=== PATIENT | male | born 1995 | race Caucasian/White ===

== ENCOUNTER 2023-10-01 15:58 | Emergency (ER) | payer MEDICAID ==
[~2023-10-01] VITALS: Ht 177.8 cm; Wt 71.0 kg
[2023-10-01 16:43] LABS: BASOPHILS # (AUTO) 0.1 X10'3 (0-0.2); BASOPHILS % (AUTO) 0.9 % (0-1); EOSINOPHILS # (AUTO) 0.3 X10'3 (0-0.9); EOSINOPHILS % (AUTO) 3.2 % (0-6); HEMATOCRIT 38.7 % (42.0-52.0); HEMOGLOBIN 12.9 g/dl (14.0-17.9); LYMPHOCYTES # (AUTO) 2.8 X10'3 (1.1-4.8); LYMPHOCYTES % (AUTO) 33.9 % (21-51); MEAN CORPUSCULAR HEMOGLOBIN 29.7 PG (27.0-31.0); MEAN CORPUSCULAR HGB CONC 33.2 g/dL (33.0-36.5); MEAN CORPUSCULAR VOLUME 89.2 FL (78-98); MEAN PLATELET VOLUME 7.4 FL (7.4-10.4); MONOCYTES # (AUTO) 0.6 X10'3 (0-0.9); MONOCYTES % (AUTO) 7.9 % (2-12); NEUTROPHILS # (AUTO) 4.4 X10'3 (1.8-7.7); NEUTROPHILS % (AUTO) 54.1 % (42-75); PLATELET COUNT 255 X10'3 (140-440); RED BLOOD COUNT 4.34 X10'6 (4.70-6.10); RED CELL DISTRIBUTION WIDTH 13.8 % (11.5-14.5); WHITE BLOOD COUNT 8.1 X10'3 (4.5-11.0)
[2023-10-01 16:57] LABS: ALBUMIN 3.2 G/DL (3.4-5.0); ANION GAP 6 (8-16); BLOOD UREA NITROGEN 28 MG/DL (7-18); BUN/CREATININE RATIO 24.1 (10.0-20.0); CALCIUM 7.9 MG/DL (8.5-10.1); CHLORIDE 103 MMOL/L (99-107); CREATININE 1.16 MG/DL (0.60-1.10); ETHANOL < 10 MG/DL (<10); GLUCOSE 193 MG/DL (70-104); POTASSIUM 3.1 MMOL/L (3.5-5.1); SALICYLATE 1.1 MG/DL (4.0-20.0); SODIUM 136 MMOL/L (135-145); TOTAL CARBON DIOXIDE 26.6 MMOL/L (24-32); eCRCL 96 ML/MIN; eGFR 76 ML/MIN
[2023-10-01 17:02] LABS: ACETAMINOPHEN < 2.0 UG/ML (10-30)
[2023-10-01 20:56] LABS: BILIRUBIN,URINE NEGATIVE (Neg); CLARITY,URINE CLEAR (Clear); COLOR,URINE YELLOW (Yellow); GLUCOSE, URINE NEGATIVE (Neg); KETONES,URINE TRACE mg/dl (Neg); LEUKOCYTE ESTERASE ,URINE NEGATIVE (Neg); NITRITES, URINE NEGATIVE (Neg); OCCULT BLOOD,URINE NEGATIVE (Neg); PROTEIN,URINE NEGATIVE (Neg); UROBILINOGEN,URINE 0.2 E.U/dL (0.2-1.0)
[2023-10-01 20:58] LABS: UA COLLECTION TYPE VOIDED
[2023-10-01 21:16] LABS: URINE AMPHETAMINE SCREEN POSITIVE (Neg); URINE BARBITUATE SCREEN NEGATIVE (Neg); URINE BENZODIAZEPINES SCREEN NEGATIVE (Neg); URINE CANNABINOID SCREEN POSITIVE (Neg); URINE COCAINE SCREEN NEGATIVE (Neg); URINE METHADONE SCREEN NEGATIVE (Neg); URINE OPIATE SCREEN NEGATIVE (Neg); URINE PHENCYCLIDINE SCREEN NEGATIVE (Neg)
[2023-10-01] MEDS ORDERED: NO HOME MEDS (22:44)
[2023-10-01] MEDS: potassium Cl 20 mEq SR tablet PO STA (23:13)
[2023-10-02 06:06] VITALS: BP 108/53; PULSE 68; RESP 18; O2SAT 92
[2023-10-02 11:24] VITALS: TEMP 98.1
== END 2023-10-02 11:27 | disposition home or self-care (01) ==
LOC: EDBD 15:59 → ER 15:59
DX: T43.651A Poisoning by methamphetamines accidental (unintentional), initial encounter (principal); Z20.822 Contact with and (suspected) exposure to COVID-19; Y92.89 Other specified places as the place of occurrence of the external cause
CPT/HCPCS: 36415; 80048; 80305; 80320; 80329; 81003; 85025; 87811; 99285; A4615

== ENCOUNTER 2023-10-23 21:08 | Emergency (ER) | payer MEDICAID ==
[~2023-10-23] VITALS: Ht 170.2 cm; Wt 72.7 kg
[~2023-10-23 21:08] MED LIST: NO HOME MEDS
[2023-10-23 21:21] VITALS: TEMP 98.9
[2023-10-23 22:30] LABS: BASOPHILS # (AUTO) 0.1 X10'3 (0-0.2); BASOPHILS % (AUTO) 0.8 % (0-1); EOSINOPHILS # (AUTO) 0.1 X10'3 (0-0.9); EOSINOPHILS % (AUTO) 0.7 % (0-6); HEMATOCRIT 34.9 % (42.0-52.0); HEMOGLOBIN 11.5 g/dl (14.0-17.9); LYMPHOCYTES # (AUTO) 2.3 X10'3 (1.1-4.8); LYMPHOCYTES % (AUTO) 17.9 % (21-51); MEAN CORPUSCULAR HEMOGLOBIN 28.4 PG (27.0-31.0); MEAN CORPUSCULAR HGB CONC 32.9 g/dL (33.0-36.5); MEAN CORPUSCULAR VOLUME 86.5 FL (78-98); MONOCYTES # (AUTO) 1.4 X10'3 (0-0.9); MONOCYTES % (AUTO) 11.3 % (2-12); NEUTROPHILS # (AUTO) 8.9 X10'3 (1.8-7.7); NEUTROPHILS % (AUTO) 69.3 % (42-75); PLATELET COUNT 350 X10'3 (140-440); RED BLOOD COUNT 4.03 X10'6 (4.70-6.10); RED CELL DISTRIBUTION WIDTH 14.3 % (11.5-14.5); WHITE BLOOD COUNT 12.8 X10'3 (4.5-11.0)
[2023-10-23 22:40] LABS: ALANINE AMINOTRANSFERASE 24 U/L (12-78); ALBUMIN 2.2 G/DL (3.4-5.0); ALBUMIN/GLOBULIN RATIO 0.5 (1.1-1.5); ALKALINE PHOSPHATASE 59 IU/L (46-116); ANION GAP 10 (8-16); ASPARTATE AMINO TRANSFERASE 21 U/L (10-37); BILIRUBIN,TOTAL 0.2 MG/DL (0.1-1.0); BLOOD UREA NITROGEN 18 MG/DL (7-18); BUN/CREATININE RATIO 20.7 (10.0-20.0); CALCIUM 8.4 MG/DL (8.5-10.1); CHLORIDE 105 MMOL/L (99-107); CREATININE 0.87 MG/DL (0.60-1.10); GLUCOSE 102 MG/DL (70-104); POTASSIUM 4.3 MMOL/L (3.5-5.1); SODIUM 142 MMOL/L (135-145); TOTAL CARBON DIOXIDE 27.5 MMOL/L (24-32); TOTAL PROTEIN 6.8 G/DL (6.4-8.2); eCRCL 119 ML/MIN; eGFR > 90 ML/MIN
[2023-10-23 22:43] LABS: SALICYLATE 0.9 MG/DL (4.0-20.0)
[2023-10-23 22:45] LABS: ACETAMINOPHEN < 2.0 UG/ML (10-30)
[2023-10-23 22:48] LABS: PRO BRAIN NATRIURETIC PEPTIDE 103 PG/ML (0-125)
[2023-10-23 22:50] LABS: ETHANOL < 10 MG/DL (<10)
[2023-10-23] MEDS: OLANZapine 2.5MG tablet PO STA (23:05)
[2023-10-23 23:07] LABS: D-DIMER 0.93 MG/L FEU (0-0.50); INR 1.1 INR; PROTHROMBIN TIME 11.4 SECONDS (9.0-12.0)
[2023-10-23] MEDS: olanzapine 10mg tablet PO STA (23:08)
[2023-10-23] MEDS ORDERED: iohexol 350MG/ML 100ml bottle IV ONE (23:47)
[2023-10-24 00:17] LABS: URINE AMPHETAMINE SCREEN POSITIVE (Neg); URINE BARBITUATE SCREEN NEGATIVE (Neg); URINE BENZODIAZEPINES SCREEN NEGATIVE (Neg); URINE CANNABINOID SCREEN POSITIVE (Neg); URINE COCAINE SCREEN NEGATIVE (Neg); URINE METHADONE SCREEN NEGATIVE (Neg); URINE OPIATE SCREEN NEGATIVE (Neg); URINE PHENCYCLIDINE SCREEN NEGATIVE (Neg)
[2023-10-24] MEDS: levoFLOXACIN 750MG TABLET PO ONE (01:27)
[2023-10-24 06:09] VITALS: O2SAT 97
[2023-10-24 07:28] VITALS: BP 106/65; PULSE 85
[2023-10-24] MEDS ORDERED: LEVO-65 PO (10:33)
[2023-10-24 10:53] VITALS: RESP 16
== END 2023-10-24 10:56 | disposition home or self-care (01) ==
LOC: ER 21:09 → MERGE 21:09 → ER 10-24 10:56
DX: F60.0 Paranoid personality disorder (principal); R45.851 Suicidal ideations; J18.9 Pneumonia, unspecified organism; Z20.822 Contact with and (suspected) exposure to COVID-19; F32.A Depression, unspecified; F20.9 Schizophrenia, unspecified; F15.90 Other stimulant use, unspecified, uncomplicated; F11.90 Opioid use, unspecified, uncomplicated; Z59.00 Homelessness unspecified; Z56.0 Unemployment, unspecified; Z79.899 Other long term (current) drug therapy
CPT/HCPCS: 36415; 71045; 71275; 80053; 80305; 80320; 80329; 83880; 84484; 85025; 85379; 85610; 87811; 93005; 99285; J3490; Q9967

== ENCOUNTER → 2023-11-14 | Emergency (ER) | payer MEDICAID ==
[~2023-11-14] VITALS: Ht 170.2 cm; Wt 71.4 kg
[~2023-11-14] MED LIST changes: +AMOX-117 PO; +OLAN10TA73 PO
[2023-11-14 04:20] VITALS: BP 148/70; PULSE 92; RESP 20; TEMP 98; O2SAT 98
== END | disposition home or self-care (01) ==
LOC: ER 03:16
DX: K08.89 Other specified disorders of teeth and supporting structures (principal); F15.90 Other stimulant use, unspecified, uncomplicated; Z79.2 Long term (current) use of antibiotics
CPT/HCPCS: 99283

== ENCOUNTER 2023-11-18 20:44 | Emergency (ER) | payer MEDICAID ==
[~2023-11-18] VITALS: Ht 170.2 cm; Wt 68.2 kg
[~2023-11-18 20:44] MED LIST changes: -OLAN10TA73 PO
[2023-11-18] MEDS: normal saline 1000ml 1,000 ML IV ONE (21:20)
[2023-11-18 21:28] LABS: BASOPHILS # (AUTO) 0.1 X10'3 (0-0.2); BASOPHILS % (AUTO) 0.7 % (0-1); EOSINOPHILS # (AUTO) 0.3 X10'3 (0-0.9); EOSINOPHILS % (AUTO) 3.1 % (0-6); HEMATOCRIT 37.9 % (42.0-52.0); HEMOGLOBIN 12.5 g/dl (14.0-17.9); LYMPHOCYTES # (AUTO) 3.4 X10'3 (1.1-4.8); LYMPHOCYTES % (AUTO) 39.3 % (21-51); MEAN CORPUSCULAR HEMOGLOBIN 29.4 PG (27.0-31.0); MEAN CORPUSCULAR VOLUME 88.9 FL (78-98); MONOCYTES # (AUTO) 0.7 X10'3 (0-0.9); MONOCYTES % (AUTO) 7.9 % (2-12); NEUTROPHILS # (AUTO) 4.3 X10'3 (1.8-7.7); PLATELET COUNT 282 X10'3 (140-440); RED BLOOD COUNT 4.27 X10'6 (4.70-6.10); RED CELL DISTRIBUTION WIDTH 15.2 % (11.5-14.5); WHITE BLOOD COUNT 8.7 X10'3 (4.5-11.0)
[2023-11-18 21:51] LABS: ALBUMIN 3.4 G/DL (3.4-5.0); ANION GAP 10 (8-16); BLOOD UREA NITROGEN 27 MG/DL (7-18); BUN/CREATININE RATIO 22.3 (10.0-20.0); CALCIUM 8.5 MG/DL (8.5-10.1); CHLORIDE 101 MMOL/L (99-107); CREATININE 1.21 MG/DL (0.60-1.10); GLUCOSE 141 MG/DL (70-104); POTASSIUM 3.1 MMOL/L (3.5-5.1); SODIUM 139 MMOL/L (135-145); THYROID STIMULATING HORMONE 4.89 ulU/ml (0.34-4.50); TOTAL CARBON DIOXIDE 27.6 MMOL/L (24-32); eCRCL 86 ML/MIN; eGFR 72 ML/MIN
[2023-11-18 21:53] LABS: ETHANOL < 10 MG/DL (<10)
[2023-11-18 22:00] VITALS: TEMP 98
[2023-11-18] MEDS ORDERED: OLAN10TA73 PO (22:14)
[2023-11-18 22:26] LABS: FREE T4 (FREE THYROXINE) 1.01 NG/DL (0.73-1.40)
[2023-11-19 01:03] LABS: BILIRUBIN,URINE NEGATIVE (Neg); CLARITY,URINE SLIGHTLY CLOUDY (Clear); COLOR,URINE YELLOW (Yellow); GLUCOSE, URINE NEGATIVE (Neg); KETONES,URINE TRACE mg/dl (Neg); LEUKOCYTE ESTERASE ,URINE NEGATIVE (Neg); NITRITES, URINE NEGATIVE (Neg); OCCULT BLOOD,URINE NEGATIVE (Neg); PROTEIN,URINE TRACE mg/dl (Neg); UROBILINOGEN,URINE 0.2 E.U/dL (0.2-1.0)
[2023-11-19 01:10] LABS: UA COLLECTION TYPE CLN CATCH MIDSTREAM
[2023-11-19 01:12] LABS: SQUAMOUS EPITHELIAL CELL,UR FEW /LPF (FEW)
[2023-11-19 01:13] LABS: BACTERIA,URINE FEW /HPF (Neg); MUCUS STRANDS FEW /LPF (Neg); RBC,URINE 0-2 /HPF (0-2); WBC,URINE 0-4 /HPF (0-4)
[2023-11-19 01:14] LABS: COARSE GRANULAR CAST 0-3 /LPF (NEGATIVE); FINE GRANULAR CAST 0-3 /LPF (NEGATIVE)
[2023-11-19 01:18] LABS: URINE AMPHETAMINE SCREEN POSITIVE (Neg); URINE BARBITUATE SCREEN NEGATIVE (Neg); URINE BENZODIAZEPINES SCREEN NEGATIVE (Neg); URINE CANNABINOID SCREEN POSITIVE (Neg); URINE COCAINE SCREEN NEGATIVE (Neg); URINE METHADONE SCREEN NEGATIVE (Neg); URINE OPIATE SCREEN NEGATIVE (Neg); URINE PHENCYCLIDINE SCREEN NEGATIVE (Neg)
[2023-11-19 05:50] VITALS: O2SAT 98
[2023-11-19 07:51] VITALS: BP 110/63; PULSE 74
[2023-11-19 07:59] VITALS: RESP 16
== END 2023-11-19 13:30 | disposition home or self-care (01) ==
LOC: ER 20:45
DX: F19.10 Other psychoactive substance abuse, uncomplicated (principal); F15.10 Other stimulant abuse, uncomplicated; Z20.822 Contact with and (suspected) exposure to COVID-19
CPT/HCPCS: 36415; 80048; 80305; 80320; 81001; 84439; 84443; 85025; 87811; 99285; J7030

== ENCOUNTER 2023-11-26 18:28 | Inpatient (IN) | payer MEDICAID ==
[~2023-11-26] VITALS: Ht 172.7 cm; Wt 76.6 kg
[~2023-11-26 18:28] MED LIST changes: -AMOX-117 PO
[2023-11-26 19:14] LABS: BASOPHILS # (AUTO) 0.1 X10'3 (0-0.2); BASOPHILS % (AUTO) 0.7 % (0-1); EOSINOPHILS # (AUTO) 0.3 X10'3 (0-0.9); EOSINOPHILS % (AUTO) 2.8 % (0-6); HEMATOCRIT 37.5 % (42.0-52.0); HEMOGLOBIN 12.4 g/dl (14.0-17.9); LYMPHOCYTES # (AUTO) 1.6 X10'3 (1.1-4.8); LYMPHOCYTES % (AUTO) 15.6 % (21-51); MEAN CORPUSCULAR HEMOGLOBIN 29.3 PG (27.0-31.0); MEAN CORPUSCULAR HGB CONC 33.1 g/dL (33.0-36.5); MEAN CORPUSCULAR VOLUME 88.3 FL (78-98); MEAN PLATELET VOLUME 7.8 FL (7.4-10.4); MONOCYTES # (AUTO) 0.6 X10'3 (0-0.9); MONOCYTES % (AUTO) 6.2 % (2-12); NEUTROPHILS # (AUTO) 7.8 X10'3 (1.8-7.7); NEUTROPHILS % (AUTO) 74.7 % (42-75); PLATELET COUNT 280 X10'3 (140-440); RED BLOOD COUNT 4.25 X10'6 (4.70-6.10); RED CELL DISTRIBUTION WIDTH 15.2 % (11.5-14.5); WHITE BLOOD COUNT 10.4 X10'3 (4.5-11.0)
[2023-11-26 19:38] LABS: ALBUMIN 3.2 G/DL (3.4-5.0); ANION GAP 6 (8-16); BLOOD UREA NITROGEN 18 MG/DL (7-18); BUN/CREATININE RATIO 20.5 (10.0-20.0); CALCIUM 8.3 MG/DL (8.5-10.1); CHLORIDE 105 MMOL/L (99-107); CREATININE 0.88 MG/DL (0.60-1.10); ETHANOL < 10 MG/DL (<10); GLUCOSE 110 MG/DL (70-104); POTASSIUM 3.5 MMOL/L (3.5-5.1); SODIUM 138 MMOL/L (135-145); THYROID STIMULATING HORMONE 0.29 ulU/ml (0.34-4.50); TOTAL CARBON DIOXIDE 26.8 MMOL/L (24-32); eCRCL 122 ML/MIN; eGFR > 90 ML/MIN
[2023-11-26 20:48] LABS: URINE AMPHETAMINE SCREEN POSITIVE (Neg); URINE BARBITUATE SCREEN NEGATIVE (Neg); URINE BENZODIAZEPINES SCREEN NEGATIVE (Neg); URINE CANNABINOID SCREEN POSITIVE (Neg); URINE COCAINE SCREEN NEGATIVE (Neg); URINE METHADONE SCREEN NEGATIVE (Neg); URINE PHENCYCLIDINE SCREEN NEGATIVE (Neg)
[2023-11-26] MEDS: cephalexin 250mg capsule PO SCH (23:31)
[2023-11-27 10:32] LABS: BILIRUBIN,URINE NEGATIVE (Neg); CLARITY,URINE CLOUDY (Clear); COLOR,URINE YELLOW (Yellow); GLUCOSE, URINE NEGATIVE (Neg); KETONES,URINE NEGATIVE (Neg); LEUKOCYTE ESTERASE ,URINE NEGATIVE (Neg); NITRITES, URINE NEGATIVE (Neg); OCCULT BLOOD,URINE NEGATIVE (Neg); PROTEIN,URINE NEGATIVE (Neg)
[2023-11-27 10:33] LABS: UA COLLECTION TYPE VOIDED
[2023-11-27 11:17] LABS: CAL OXALATE CRYSTALS 4+ /HPF (NEGATIVE)
[2023-11-27 11:18] LABS: RBC,URINE NONE SEEN /HPF (0-2); WBC,URINE NONE SEEN /HPF (0-4)
[2023-11-27 11:19] LABS: SQUAMOUS EPITHELIAL CELL,UR NONE SEEN /LPF (FEW)
[2023-11-27 11:26] LABS: AMORPHOUS URATES 4+; BACTERIA,URINE NONE SEEN /HPF (Neg)
[2023-11-27] MEDS ORDERED: loperamide 2mg capsule PO PRN (14:10)
[2023-11-27] MEDS ORDERED: acetaminophen 325mg tablet PO PRN ×2 (14:10)
[2023-11-27] MEDS ORDERED: magnesium hydroxide 30ml (MOM) UD suspension PO PRN (14:10)
[2023-11-27] MEDS ORDERED: mag hydrox/Alum hydrox/simeth 30ml oral suspension PO PRN (14:10)
[2023-11-27 19:00] VITALS: RESP 16; O2SAT 77
[2023-11-27 20:00] VITALS: BP 108/50; PULSE 77; RESP 16; TEMP 98.8; O2SAT 99
[2023-11-28 07:00] VITALS: RESP 14; O2SAT 99
[2023-11-28 08:00] VITALS: BP 96/53; PULSE 65; RESP 14; TEMP 99.1; O2SAT 99
[2023-11-28 15:00] VITALS: BP 103/66; PULSE 96; RESP 17; TEMP 98.7; O2SAT 99
[2023-11-28 19:30] VITALS: BP 105/62; PULSE 80; RESP 16; TEMP 98.4; O2SAT 98
[2023-11-28 23:00] VITALS: BP 100/56; PULSE 78; RESP 16; TEMP 98.7; O2SAT 97
[2023-11-29] MEDS: buPROPion 75mg tablet PO ONE (08:46)
[2023-11-29 08:50] VITALS: BP 104/66; PULSE 86; RESP 18; TEMP 98.8; O2SAT 99
[2023-11-29] MEDS: buprenorphine/naloxone 2-0.5mg sublingual tablet SL ONE (18:01)
[2023-11-29 18:10] VITALS: BP 109/67; PULSE 121; RESP 18; TEMP 98.8
[2023-11-29 19:27] VITALS: RESP 20; O2SAT 98
[2023-11-29 20:00] VITALS: BP 93/53; PULSE 92; RESP 20; TEMP 97.9; O2SAT 98
[2023-11-30 07:00] VITALS: RESP 18; O2SAT 96
[2023-11-30] MEDS: buPROPion 75mg tablet PO SCH (08:07)
[2023-11-30 08:31] VITALS: BP 110/64; PULSE 74; RESP 18; TEMP 98.1; O2SAT 96
[2023-11-30] MEDS: buprenorphine/naloxone 2-0.5mg sublingual tablet SL ONE (09:10)
[2023-11-30 16:33] VITALS: BP 105/63; PULSE 96
[2023-11-30 19:33] VITALS: BP 120/67; PULSE 106; RESP 18; TEMP 97.7; O2SAT 18
[2023-11-30 19:48] VITALS: BP 104/65; PULSE 93; RESP 18; TEMP 97.9; O2SAT 100
[2023-11-30] MEDS: cephalexin 500mg capsule PO SCH (20:06)
[2023-11-30] MEDS: traZODone 50mg tablet PO PRN (20:06)
[2023-11-30] MEDS: OLANZapine 2.5MG tablet PO SCH (20:06)
[2023-12-01 07:00] VITALS: RESP 14; O2SAT 98
[2023-12-01] MEDS: buprenorphine/naloxone 2-0.5mg sublingual tablet SL SCH (07:47)
[2023-12-01 08:00] VITALS: BP 117/57; PULSE 79; RESP 14; TEMP 97.7; O2SAT 98
[2023-12-01 10:56] LABS: HEMOGLOBIN A1C 5.5 % (4.5-6.2)
[2023-12-01 11:47] LABS: HIV ANTIBODY 1&2 RAPID NON-REACTIVE (Neg)
[2023-12-01 14:45] VITALS: BP 101/58; PULSE 81
[2023-12-01 19:16] VITALS: RESP 20; O2SAT 98
[2023-12-01 19:21] VITALS: BP 100/53; PULSE 77; RESP 20; TEMP 97.7; O2SAT 98
[2023-12-02 07:00] VITALS: RESP 16; O2SAT 98
[2023-12-02 08:00] VITALS: BP 104/60; PULSE 80; RESP 16; TEMP 97.7; O2SAT 98
[2023-12-02 19:06] VITALS: BP 117/71; PULSE 87; RESP 16; TEMP 98; O2SAT 98
[2023-12-02 19:20] VITALS: RESP 16; O2SAT 98
[2023-12-03 07:00] VITALS: BP 103/55; PULSE 79; RESP 18; TEMP 97.9; O2SAT 98
[2023-12-03 15:34] LABS: HBSAG SCREEN Negative (Negative); HEP A AB, IGM Negative (Negative); HEP B CORE AB, IGM Negative (Negative); HEPATITIS C VIRUS ANTIBODY Non Reactive (Non Reactive)
[2023-12-03 19:00] VITALS: BP 118/70; PULSE 77; RESP 18; TEMP 98.7; O2SAT 98
[2023-12-04 07:30] VITALS: BP 94/51; PULSE 65; RESP 15; TEMP 98.5; O2SAT 97
[2023-12-04] MEDS ORDERED: TRAZ-251 PO (13:33)
[2023-12-04] MEDS ORDERED: OLAN2.5T28 PO (13:33)
[2023-12-04] MEDS ORDERED: BUPR1TAB44 SL (13:33)
[2023-12-04] MEDS ORDERED: BUPR-297 PO (13:33)
[2023-12-04] MEDS ORDERED: NALO4SPR BOTHNARES (13:38)
== END 2023-12-04 14:52 | disposition home or self-care (01) | DRG 751 ==
LOC: ER 18:29 → ED HOLD 11-27 13:00 → ADULT MH 11-27 13:49
PROVIDERS: ADMIT Psychiatry & Neurology Psychiatry; ATTEND Psychiatry & Neurology Psychiatry
PROC: GZHZZZZ Group Psychotherapy (ICD-10-PCS; principal; 2023-11-29)
PROC: GZ56ZZZ Individual Psychotherapy, Supportive (ICD-10-PCS; 2023-12-01)
DX: F33.2 Major depressive disorder, recurrent severe without psychotic features (principal); R45.851 Suicidal ideations; F11.20 Opioid dependence, uncomplicated; F12.20 Cannabis dependence, uncomplicated; F15.20 Other stimulant dependence, uncomplicated; F17.210 Nicotine dependence, cigarettes, uncomplicated; Z59.01 Sheltered homelessness
CPT/HCPCS: 36415; 73560; 80048; 80074; 80305; 80320; 81001; 83036; 83721; 84443; 85025; 86592; 86703; 87081; 87811; 99285

== ENCOUNTER 2023-12-06 23:47 | Emergency (ER) | payer MEDICAID ==
[~2023-12-06] VITALS: Ht 170.2 cm; Wt 68.0 kg
[~2023-12-06 23:47] MED LIST changes: +BUPR-297 PO; +BUPR1TAB44 SL; +NALO4SPR BOTHNARES; -NO HOME MEDS; +OLAN2.5T28 PO; +TRAZ-251 PO
[2023-12-07 00:19] VITALS: TEMP 98
[2023-12-07 00:38] LABS: BASOPHILS # (AUTO) 0.1 X10'3 (0-0.2); BASOPHILS % (AUTO) 0.8 % (0-1); EOSINOPHILS # (AUTO) 0.1 X10'3 (0-0.9); EOSINOPHILS % (AUTO) 0.8 % (0-6); HEMATOCRIT 38.8 % (42.0-52.0); HEMOGLOBIN 12.9 g/dl (14.0-17.9); MEAN CORPUSCULAR HEMOGLOBIN 29.1 PG (27.0-31.0); MEAN CORPUSCULAR HGB CONC 33.2 g/dL (33.0-36.5); MEAN CORPUSCULAR VOLUME 87.7 FL (78-98); MEAN PLATELET VOLUME 7.5 FL (7.4-10.4); MONOCYTES % (AUTO) 7.5 % (2-12); NEUTROPHILS # (AUTO) 9.9 X10'3 (1.8-7.7); NEUTROPHILS % (AUTO) 75.9 % (42-75); PLATELET COUNT 307 X10'3 (140-440); RED BLOOD COUNT 4.43 X10'6 (4.70-6.10); RED CELL DISTRIBUTION WIDTH 15.2 % (11.5-14.5)
[2023-12-07 00:55] LABS: ALBUMIN 3.6 G/DL (3.4-5.0); ANION GAP 8 (8-16); BLOOD UREA NITROGEN 24 MG/DL (7-18); BUN/CREATININE RATIO 21.1 (10.0-20.0); CALCIUM 8.7 MG/DL (8.5-10.1); CHLORIDE 104 MMOL/L (99-107); CREATININE 1.14 MG/DL (0.60-1.10); ETHANOL < 10 MG/DL (<10); GLUCOSE 107 MG/DL (70-104); POTASSIUM 3.3 MMOL/L (3.5-5.1); SALICYLATE 2.1 MG/DL (4.0-20.0); SODIUM 140 MMOL/L (135-145); eCRCL 91 ML/MIN; eGFR 77 ML/MIN
[2023-12-07] MEDS: OLANZapine 2.5MG tablet PO STA (00:58)
[2023-12-07 01:13] LABS: ACETAMINOPHEN < 2.0 UG/ML (10-30)
[2023-12-07 02:43] LABS: URINE AMPHETAMINE SCREEN POSITIVE (Neg); URINE BARBITUATE SCREEN NEGATIVE (Neg); URINE BENZODIAZEPINES SCREEN NEGATIVE (Neg); URINE CANNABINOID SCREEN NEGATIVE (Neg); URINE COCAINE SCREEN NEGATIVE (Neg); URINE METHADONE SCREEN NEGATIVE (Neg); URINE PHENCYCLIDINE SCREEN NEGATIVE (Neg)
[2023-12-07] MEDS ORDERED: OLAN2.5T3 PO (03:02)
[2023-12-07] MEDS ORDERED: TRAZ-251 PO (03:02)
[2023-12-07] MEDS ORDERED: BUPR100T13 PO (03:05)
[2023-12-07 05:57] VITALS: BP 110/67; PULSE 99; RESP 12; O2SAT 99
[2023-12-07] MEDS: buPROPion 75mg tablet PO SCH (08:00)
[2023-12-07] MEDS: OLANZapine 2.5MG tablet PO SCH (08:00)
[2023-12-07] MEDS ORDERED: traZODone 50mg tablet PO SCH (21:00)
== END 2023-12-07 09:26 | disposition home or self-care (01) ==
LOC: ER 23:47
DX: F19.10 Other psychoactive substance abuse, uncomplicated (principal); F32.A Depression, unspecified; F20.9 Schizophrenia, unspecified; F15.90 Other stimulant use, unspecified, uncomplicated; F11.90 Opioid use, unspecified, uncomplicated; Z59.00 Homelessness unspecified; Z56.0 Unemployment, unspecified; Z79.899 Other long term (current) drug therapy
CPT/HCPCS: 36415; 80048; 80305; 80320; 80329; 85025; 99284

== ENCOUNTER 2023-12-12 08:09 | Emergency (ER) | payer MEDICAID ==
[~2023-12-12] VITALS: Ht 170.2 cm; Wt 65.3 kg
[2023-12-12 08:09] VITALS: BP 94/62; PULSE 90; RESP 16; TEMP 97.7; O2SAT 100
[~2023-12-12 08:09] MED LIST changes: -BUPR-297 PO; +BUPR100T13 PO; -BUPR1TAB44 SL; -NALO4SPR BOTHNARES; -OLAN2.5T28 PO; +OLAN2.5T3 PO
== END 2023-12-12 08:27 | disposition left against medical advice (07) ==
LOC: ER 08:09
DX: H92.02 Otalgia, left ear (principal); Z53.21 Procedure and treatment not carried out due to patient leaving prior to being seen by health care provider

== ENCOUNTER 2023-12-13 03:29 | Emergency (ER) | payer MEDICAID | END 2023-12-13 04:13 | disposition left against medical advice (07) | LOC: ER 03:29 | DX: H92.09 Otalgia, unspecified ear (principal); Z53.21 Procedure and treatment not carried out due to patient leaving prior to being seen by health care provider ==

== ENCOUNTER 2024-03-10 01:02 | Emergency (ER) | payer MEDICAID ==
[~2024-03-10] VITALS: Ht 167.6 cm; Wt 62.2 kg
[2024-03-10 01:40] LABS: BASOPHILS # (AUTO) 0.1 X10'3 (0-0.2); BASOPHILS % (AUTO) 1.2 % (0-1); EOSINOPHILS # (AUTO) 0.3 X10'3 (0-0.9); HEMATOCRIT 41.1 % (42.0-52.0); HEMOGLOBIN 13.8 g/dl (14.0-17.9); LYMPHOCYTES # (AUTO) 3.1 X10'3 (1.1-4.8); LYMPHOCYTES % (AUTO) 33.2 % (21-51); MEAN CORPUSCULAR HEMOGLOBIN 29.2 PG (27.0-31.0); MEAN CORPUSCULAR HGB CONC 33.5 g/dL (33.0-36.5); MEAN CORPUSCULAR VOLUME 87.3 FL (78-98); MEAN PLATELET VOLUME 7.9 FL (7.4-10.4); MONOCYTES # (AUTO) 0.7 X10'3 (0-0.9); MONOCYTES % (AUTO) 7.2 % (2-12); NEUTROPHILS # (AUTO) 5.3 X10'3 (1.8-7.7); NEUTROPHILS % (AUTO) 55.4 % (42-75); PLATELET COUNT 272 X10'3 (140-440); RED BLOOD COUNT 4.71 X10'6 (4.70-6.10); RED CELL DISTRIBUTION WIDTH 13.7 % (11.5-14.5); WHITE BLOOD COUNT 9.5 X10'3 (4.5-11.0)
[2024-03-10 01:50] LABS: ALANINE AMINOTRANSFERASE 21 U/L (12-78); ALBUMIN 3.8 G/DL (3.4-5.0); ALBUMIN/GLOBULIN RATIO 1.1 (1.1-1.5); ALKALINE PHOSPHATASE 51 IU/L (46-116); ANION GAP 7 (8-16); ASPARTATE AMINO TRANSFERASE 15 U/L (10-37); BILIRUBIN,TOTAL 0.3 MG/DL (0.1-1.0); BLOOD UREA NITROGEN 14 MG/DL (7-18); BUN/CREATININE RATIO 15.7 (10.0-20.0); CALCIUM 8.9 MG/DL (8.5-10.1); CHLORIDE 106 MMOL/L (99-107); CREATININE 0.89 MG/DL (0.60-1.10); GLUCOSE 92 MG/DL (70-104); POTASSIUM 3.7 MMOL/L (3.5-5.1); SODIUM 143 MMOL/L (135-145); TOTAL CARBON DIOXIDE 29.8 MMOL/L (24-32); TOTAL PROTEIN 7.3 G/DL (6.4-8.2); eCRCL 109 ML/MIN; eGFR > 90 ML/MIN
[2024-03-10 01:59] LABS: ETHANOL < 10 MG/DL (<10); THYROID STIMULATING HORMONE 1.85 ulU/ml (0.34-4.50)
[2024-03-10 06:50] VITALS: BP 113/78; PULSE 91; RESP 20; TEMP 97.6; O2SAT 98
[2024-03-10 07:28] LABS: URINE AMPHETAMINE SCREEN POSITIVE (Neg); URINE BARBITUATE SCREEN NEGATIVE (Neg); URINE BENZODIAZEPINES SCREEN NEGATIVE (Neg); URINE CANNABINOID SCREEN NEGATIVE (Neg); URINE COCAINE SCREEN NEGATIVE (Neg); URINE METHADONE SCREEN NEGATIVE (Neg); URINE OPIATE SCREEN NEGATIVE (Neg); URINE PHENCYCLIDINE SCREEN NEGATIVE (Neg)
== END 2024-03-10 13:06 | disposition home or self-care (01) ==
LOC: ER 01:02
DX: R45.851 Suicidal ideations (principal); F32.A Depression, unspecified; F20.9 Schizophrenia, unspecified; F15.90 Other stimulant use, unspecified, uncomplicated; F11.90 Opioid use, unspecified, uncomplicated; F19.90 Other psychoactive substance use, unspecified, uncomplicated; Z59.00 Homelessness unspecified; Z56.0 Unemployment, unspecified; Z79.899 Other long term (current) drug therapy; Z20.822 Contact with and (suspected) exposure to COVID-19
CPT/HCPCS: 36415; 80053; 80305; 80320; 84443; 85025; 87811; 99285

== ENCOUNTER 2024-03-15 02:09 | Emergency (ER) | payer MEDICAID ==
[~2024-03-15] VITALS: Ht 170.2 cm; Wt 72.7 kg
[2024-03-15] MEDS ORDERED: BUPR100T13 PO (02:53)
[2024-03-15] MEDS ORDERED: OLAN5TAB3 PO (02:53)
[2024-03-15] MEDS ORDERED: TRAZ-251 PO (02:53)
[2024-03-15 05:49] VITALS: BP 143/99; PULSE 102; RESP 18; TEMP 98.9; O2SAT 96
== END 2024-03-15 06:01 | disposition home or self-care (01) ==
LOC: ER 02:09
DX: R45.851 Suicidal ideations (principal); F15.90 Other stimulant use, unspecified, uncomplicated; F32.A Depression, unspecified; Z91.199 Patient's noncompliance with other medical treatment and regimen due to unspecified reason; Z79.899 Other long term (current) drug therapy
CPT/HCPCS: 99285

== ENCOUNTER 2024-03-17 21:16 | Emergency (ER) | payer MEDICAID ==
[~2024-03-17] VITALS: Ht 172.7 cm; Wt 70.5 kg
[~2024-03-17 21:16] MED LIST changes: +OLAN5TAB3 PO
[2024-03-17 21:33] VITALS: TEMP 98.2
[2024-03-17] MEDS: LORazepam 1 MG tablet PO ONE (22:32)
[2024-03-17] MEDS: OLANZapine 2.5MG tablet PO ONE (22:32)
[2024-03-17] MEDS: diphenhydrAMINE 25mg capsule PO ONE (22:32)
[2024-03-17 22:35] LABS: BASOPHILS # (AUTO) 0.1 X10'3 (0-0.2); BASOPHILS % (AUTO) 1.3 % (0-1); EOSINOPHILS # (AUTO) 0.2 X10'3 (0-0.9); EOSINOPHILS % (AUTO) 2.6 % (0-6); HEMOGLOBIN 14.1 g/dl (14.0-17.9); LYMPHOCYTES # (AUTO) 2.4 X10'3 (1.1-4.8); LYMPHOCYTES % (AUTO) 32.6 % (21-51); MEAN CORPUSCULAR HEMOGLOBIN 28.9 PG (27.0-31.0); MEAN CORPUSCULAR HGB CONC 32.8 g/dL (33.0-36.5); MEAN CORPUSCULAR VOLUME 88.2 FL (78-98); MEAN PLATELET VOLUME 7.6 FL (7.4-10.4); MONOCYTES # (AUTO) 0.5 X10'3 (0-0.9); MONOCYTES % (AUTO) 7.5 % (2-12); NEUTROPHILS # (AUTO) 4.1 X10'3 (1.8-7.7); PLATELET COUNT 279 X10'3 (140-440); RED BLOOD COUNT 4.87 X10'6 (4.70-6.10); RED CELL DISTRIBUTION WIDTH 14.1 % (11.5-14.5); WHITE BLOOD COUNT 7.2 X10'3 (4.5-11.0)
[2024-03-17 22:56] LABS: ANION GAP 4 (8-16); BLOOD UREA NITROGEN 12 MG/DL (7-18); BUN/CREATININE RATIO 12.1 (10.0-20.0); CALCIUM 9.1 MG/DL (8.5-10.1); CHLORIDE 105 MMOL/L (99-107); CREATININE 0.99 MG/DL (0.60-1.10); GLUCOSE 75 MG/DL (70-104); POTASSIUM 3.9 MMOL/L (3.5-5.1); SODIUM 140 MMOL/L (135-145); THYROID STIMULATING HORMONE 1.58 ulU/ml (0.34-4.50); TOTAL CARBON DIOXIDE 30.6 MMOL/L (24-32); eCRCL 107 ML/MIN; eGFR 90 ML/MIN
[2024-03-17 22:58] LABS: ETHANOL < 10 MG/DL (<10)
[2024-03-17 23:11] VITALS: BP 138/86; PULSE 92; RESP 16; O2SAT 100
== END 2024-03-17 23:13 | disposition home or self-care (01) ==
LOC: ER 21:16
DX: F32.A Depression, unspecified (principal); Z20.822 Contact with and (suspected) exposure to COVID-19; F15.90 Other stimulant use, unspecified, uncomplicated; Z79.899 Other long term (current) drug therapy
CPT/HCPCS: 36415; 80048; 80320; 84443; 85025; 99284; Q0163

== ENCOUNTER 2024-03-21 03:00 | Emergency (ER) | payer MEDICAID ==
[~2024-03-21] VITALS: Ht 167.6 cm; Wt 65.5 kg
[2024-03-21] MEDS ORDERED: NO HOME MEDS (03:31)
[2024-03-21] MEDS: ondansetron/PF 4mg/2ml inj IV ONE (03:56)
[2024-03-21] MEDS: ondansetron 4mg rapidly disintigrating tab PO ONE (03:56)
[2024-03-21 03:58] LABS: BASOPHILS # (AUTO) 0.1 X10'3 (0-0.2); BASOPHILS % (AUTO) 1.1 % (0-1); EOSINOPHILS # (AUTO) 0.5 X10'3 (0-0.9); EOSINOPHILS % (AUTO) 5.8 % (0-6); HEMATOCRIT 42.9 % (42.0-52.0); HEMOGLOBIN 13.9 g/dl (14.0-17.9); LYMPHOCYTES # (AUTO) 3.3 X10'3 (1.1-4.8); LYMPHOCYTES % (AUTO) 40.1 % (21-51); MEAN CORPUSCULAR HEMOGLOBIN 29.1 PG (27.0-31.0); MEAN CORPUSCULAR HGB CONC 32.5 g/dL (33.0-36.5); MEAN CORPUSCULAR VOLUME 89.5 FL (78-98); MEAN PLATELET VOLUME 7.9 FL (7.4-10.4); MONOCYTES # (AUTO) 0.6 X10'3 (0-0.9); MONOCYTES % (AUTO) 7.4 % (2-12); NEUTROPHILS # (AUTO) 3.7 X10'3 (1.8-7.7); NEUTROPHILS % (AUTO) 45.6 % (42-75); PLATELET COUNT 250 X10'3 (140-440); RED BLOOD COUNT 4.79 X10'6 (4.70-6.10); RED CELL DISTRIBUTION WIDTH 14.2 % (11.5-14.5); WHITE BLOOD COUNT 8.2 X10'3 (4.5-11.0)
[2024-03-21 04:16] LABS: ALBUMIN 3.8 G/DL (3.4-5.0); ANION GAP 10 (8-16); BLOOD UREA NITROGEN 23 MG/DL (7-18); BUN/CREATININE RATIO 20.7 (10.0-20.0); CALCIUM 8.5 MG/DL (8.5-10.1); CHLORIDE 106 MMOL/L (99-107); CREATININE 1.11 MG/DL (0.60-1.10); ETHANOL < 10 MG/DL (<10); GLUCOSE 121 MG/DL (70-104); POTASSIUM 3.3 MMOL/L (3.5-5.1); SODIUM 144 MMOL/L (135-145); THYROID STIMULATING HORMONE 1.82 ulU/ml (0.34-4.50); TOTAL CARBON DIOXIDE 28.4 MMOL/L (24-32); eCRCL 89 ML/MIN; eGFR 79 ML/MIN
[2024-03-21] MEDS: normal saline 1000ml 1,000 ML IV ONE (04:21)
[2024-03-21 04:38] LABS: BILIRUBIN,URINE NEGATIVE (Neg); CLARITY,URINE CLEAR (Clear); COLOR,URINE AMBER (Yellow); GLUCOSE, URINE NEGATIVE (Neg); KETONES,URINE NEGATIVE (Neg); LEUKOCYTE ESTERASE ,URINE NEGATIVE (Neg); NITRITES, URINE NEGATIVE (Neg); OCCULT BLOOD,URINE NEGATIVE (Neg); PH,URINE 6.5 (4.8-8.0); PROTEIN,URINE NEGATIVE (Neg)
[2024-03-21 04:42] LABS: UA COLLECTION TYPE URINAL
[2024-03-21 04:45] LABS: URINE AMPHETAMINE SCREEN POSITIVE (Neg); URINE BARBITUATE SCREEN NEGATIVE (Neg); URINE BENZODIAZEPINES SCREEN NEGATIVE (Neg); URINE CANNABINOID SCREEN POSITIVE (Neg); URINE COCAINE SCREEN NEGATIVE (Neg); URINE METHADONE SCREEN NEGATIVE (Neg); URINE OPIATE SCREEN NEGATIVE (Neg); URINE PHENCYCLIDINE SCREEN NEGATIVE (Neg)
[2024-03-21] MEDS: ziprasidone IM 20mg inj **IM only IM ONE (05:48)
[2024-03-21 10:19] VITALS: BP 110/65; PULSE 99; RESP 16; TEMP 96.9; O2SAT 95
== END 2024-03-21 10:00 | disposition home or self-care (01) ==
LOC: ER 03:01
DX: R45.851 Suicidal ideations (principal); Z20.822 Contact with and (suspected) exposure to COVID-19; F32.A Depression, unspecified; F15.90 Other stimulant use, unspecified, uncomplicated; F19.90 Other psychoactive substance use, unspecified, uncomplicated; Z79.899 Other long term (current) drug therapy
CPT/HCPCS: 36415; 80048; 80305; 80320; 81003; 84443; 85025; 87811; 96361; 96372; 96374; 99285; J2405; J3486; J7030; L3260

== ENCOUNTER 2024-03-23 16:37 | Emergency (ER) | payer MEDICAID ==
[~2024-03-23] VITALS: Ht 167.6 cm; Wt 72.5 kg
[~2024-03-23 16:37] MED LIST changes: -BUPR100T13 PO; +NO HOME MEDS; -OLAN2.5T3 PO; -OLAN5TAB3 PO; -TRAZ-251 PO
[2024-03-23 16:57] VITALS: PULSE 78; TEMP 98.1
[2024-03-23 17:55] VITALS: BP 132/78; RESP 16; O2SAT 99
== END 2024-03-23 17:56 | disposition home or self-care (01) ==
LOC: ER 16:37
DX: F99 Mental disorder, not otherwise specified (principal); F41.9 Anxiety disorder, unspecified; F32.A Depression, unspecified; F15.90 Other stimulant use, unspecified, uncomplicated
CPT/HCPCS: 99281

== ENCOUNTER 2024-03-28 19:03 | Emergency (ER) | payer MEDICAID ==
[~2024-03-28] VITALS: Ht 165.1 cm; Wt 68.6 kg
[2024-03-28 19:09] VITALS: BP 122/71; PULSE 118; RESP 18; TEMP 98.7; O2SAT 99
== END 2024-03-28 19:37 | disposition home or self-care (01) ==
LOC: ER 19:04
DX: F19.10 Other psychoactive substance abuse, uncomplicated (principal); F15.90 Other stimulant use, unspecified, uncomplicated; F20.9 Schizophrenia, unspecified
CPT/HCPCS: 99283

== ENCOUNTER 2024-03-30 16:48 | Emergency (ER) | payer MEDICAID ==
[~2024-03-30] VITALS: Ht 172.7 cm; Wt 70.0 kg
[2024-03-30 17:05] VITALS: BP 130/86; PULSE 112; RESP 16; TEMP 98; O2SAT 99
[2024-03-30 18:02] LABS: BASOPHILS # (AUTO) 0.1 X10'3 (0-0.2); BASOPHILS % (AUTO) 1.1 % (0-1); EOSINOPHILS # (AUTO) 0.2 X10'3 (0-0.9); EOSINOPHILS % (AUTO) 2.7 % (0-6); HEMATOCRIT 40.7 % (42.0-52.0); HEMOGLOBIN 13.5 g/dl (14.0-17.9); LYMPHOCYTES # (AUTO) 2.4 X10'3 (1.1-4.8); LYMPHOCYTES % (AUTO) 32.2 % (21-51); MEAN CORPUSCULAR HEMOGLOBIN 29.7 PG (27.0-31.0); MEAN CORPUSCULAR HGB CONC 33.1 g/dL (33.0-36.5); MEAN CORPUSCULAR VOLUME 89.8 FL (78-98); MEAN PLATELET VOLUME 7.6 FL (7.4-10.4); MONOCYTES # (AUTO) 0.5 X10'3 (0-0.9); MONOCYTES % (AUTO) 6.7 % (2-12); NEUTROPHILS # (AUTO) 4.3 X10'3 (1.8-7.7); NEUTROPHILS % (AUTO) 57.3 % (42-75); PLATELET COUNT 267 X10'3 (140-440); RED BLOOD COUNT 4.53 X10'6 (4.70-6.10); RED CELL DISTRIBUTION WIDTH 13.9 % (11.5-14.5); WHITE BLOOD COUNT 7.4 X10'3 (4.5-11.0)
[2024-03-30 18:23] LABS: ALBUMIN 3.8 G/DL (3.4-5.0); ANION GAP 9 (8-16); BLOOD UREA NITROGEN 20 MG/DL (7-18); BUN/CREATININE RATIO 18.9 (10.0-20.0); CALCIUM 8.5 MG/DL (8.5-10.1); CHLORIDE 108 MMOL/L (99-107); CREATININE 1.06 MG/DL (0.60-1.10); ETHANOL < 10 MG/DL (<10); GLUCOSE 123 MG/DL (70-104); POTASSIUM 3.6 MMOL/L (3.5-5.1); SODIUM 145 MMOL/L (135-145); TOTAL CARBON DIOXIDE 27.6 MMOL/L (24-32); eCRCL 100 ML/MIN; eGFR 83 ML/MIN
== END 2024-03-30 18:49 | disposition home or self-care (01) ==
LOC: ER 16:56
DX: F99 Mental disorder, not otherwise specified (principal); Z20.822 Contact with and (suspected) exposure to COVID-19; F41.9 Anxiety disorder, unspecified; F32.A Depression, unspecified; F15.90 Other stimulant use, unspecified, uncomplicated; F19.10 Other psychoactive substance abuse, uncomplicated; F20.9 Schizophrenia, unspecified; Z59.00 Homelessness unspecified
CPT/HCPCS: 36415; 80048; 80320; 84443; 85025; 87811; 99283

== ENCOUNTER 2024-04-11 03:14 | Emergency (ER) | payer MEDICAID ==
[~2024-04-11] VITALS: Ht 170.2 cm; Wt 63.6 kg
[2024-04-11 03:16] VITALS: BP 111/71; PULSE 93; O2SAT 99
[2024-04-11 04:35] LABS: BASOPHILS # (AUTO) 0.1 X10'3 (0-0.2); BASOPHILS % (AUTO) 0.9 % (0-1); EOSINOPHILS % (AUTO) 0.5 % (0-6); HEMATOCRIT 41.1 % (42.0-52.0); HEMOGLOBIN 13.5 g/dl (14.0-17.9); LYMPHOCYTES # (AUTO) 2.1 X10'3 (1.1-4.8); LYMPHOCYTES % (AUTO) 22.7 % (21-51); MEAN CORPUSCULAR HEMOGLOBIN 29.1 PG (27.0-31.0); MEAN CORPUSCULAR HGB CONC 32.8 g/dL (33.0-36.5); MEAN CORPUSCULAR VOLUME 88.9 FL (78-98); MEAN PLATELET VOLUME 7.7 FL (7.4-10.4); MONOCYTES # (AUTO) 0.7 X10'3 (0-0.9); NEUTROPHILS # (AUTO) 6.5 X10'3 (1.8-7.7); NEUTROPHILS % (AUTO) 68.9 % (42-75); PLATELET COUNT 295 X10'3 (140-440); RED BLOOD COUNT 4.62 X10'6 (4.70-6.10); RED CELL DISTRIBUTION WIDTH 14.2 % (11.5-14.5); WHITE BLOOD COUNT 9.4 X10'3 (4.5-11.0)
[2024-04-11 04:51] LABS: ALBUMIN 3.7 G/DL (3.4-5.0); ANION GAP 6 (8-16); BLOOD UREA NITROGEN 27 MG/DL (7-18); BUN/CREATININE RATIO 27.3 (10.0-20.0); CALCIUM 8.5 MG/DL (8.5-10.1); CHLORIDE 104 MMOL/L (99-107); CREATININE 0.99 MG/DL (0.60-1.10); GLUCOSE 94 MG/DL (70-104); POTASSIUM 3.7 MMOL/L (3.5-5.1); SODIUM 138 MMOL/L (135-145); THYROID STIMULATING HORMONE 0.77 ulU/ml (0.34-4.50); TOTAL CARBON DIOXIDE 28.5 MMOL/L (24-32); eCRCL 100 ML/MIN; eGFR 90 ML/MIN
[2024-04-11 04:53] LABS: ETHANOL < 10 MG/DL (<10)
[2024-04-11 07:36] LABS: URINE AMPHETAMINE SCREEN POSITIVE (Neg); URINE BARBITUATE SCREEN NEGATIVE (Neg); URINE BENZODIAZEPINES SCREEN NEGATIVE (Neg); URINE CANNABINOID SCREEN POSITIVE (Neg); URINE COCAINE SCREEN NEGATIVE (Neg); URINE METHADONE SCREEN NEGATIVE (Neg); URINE OPIATE SCREEN NEGATIVE (Neg); URINE PHENCYCLIDINE SCREEN NEGATIVE (Neg)
[2024-04-11 07:41] LABS: BILIRUBIN,URINE NEGATIVE (Neg); CLARITY,URINE CLOUDY (Clear); COLOR,URINE YELLOW (Yellow); GLUCOSE, URINE NEGATIVE (Neg); KETONES,URINE TRACE mg/dl (Neg); LEUKOCYTE ESTERASE ,URINE NEGATIVE (Neg); NITRITES, URINE NEGATIVE (Neg); OCCULT BLOOD,URINE NEGATIVE (Neg); PROTEIN,URINE 30 mg/dl (Neg); UROBILINOGEN,URINE 0.2 E.U/dL (0.2-1.0)
[2024-04-11 07:42] LABS: UA COLLECTION TYPE URINAL
[2024-04-11 07:50] LABS: SPERM MANY /HPF (NEGATIVE); SQUAMOUS EPITHELIAL CELL,UR FEW /LPF (FEW)
[2024-04-11 07:51] LABS: BACTERIA,URINE 1+ /HPF (Neg); RBC,URINE 0-2 /HPF (0-2)
[2024-04-11 09:51] VITALS: RESP 16
== END 2024-04-11 10:38 | disposition home or self-care (01) ==
LOC: ER 03:15
DX: R45.851 Suicidal ideations (principal); Z20.822 Contact with and (suspected) exposure to COVID-19; F32.A Depression, unspecified; F20.9 Schizophrenia, unspecified; F15.90 Other stimulant use, unspecified, uncomplicated; Z59.00 Homelessness unspecified
CPT/HCPCS: 36415; 80048; 80305; 80320; 81001; 84443; 85025; 87811; 99285

== ENCOUNTER 2024-04-11 19:43 | Emergency (ER) | payer MEDICAID ==
[~2024-04-11] VITALS: Ht 170.2 cm; Wt 63.1 kg
[2024-04-11 21:07] VITALS: BP 110/70; PULSE 90; RESP 16; TEMP 98.6; O2SAT 96
== END 2024-04-11 21:11 | disposition home or self-care (01) ==
LOC: ER 19:43
DX: Z76.0 Encounter for issue of repeat prescription (principal); R45.851 Suicidal ideations; F20.9 Schizophrenia, unspecified; F15.90 Other stimulant use, unspecified, uncomplicated; Z59.00 Homelessness unspecified
CPT/HCPCS: 99281

== ENCOUNTER 2024-04-12 11:35 | Emergency (ER) | payer MEDICAID ==
[~2024-04-12] VITALS: Ht 170.2 cm; Wt 75.0 kg
[2024-04-12 12:06] LABS: BASOPHILS # (AUTO) 0.1 X10'3 (0-0.2); EOSINOPHILS # (AUTO) 0.2 X10'3 (0-0.9); EOSINOPHILS % (AUTO) 3.6 % (0-6); HEMATOCRIT 40.8 % (42.0-52.0); HEMOGLOBIN 13.6 g/dl (14.0-17.9); LYMPHOCYTES # (AUTO) 2.8 X10'3 (1.1-4.8); LYMPHOCYTES % (AUTO) 42.7 % (21-51); MEAN CORPUSCULAR HEMOGLOBIN 29.5 PG (27.0-31.0); MEAN CORPUSCULAR HGB CONC 33.2 g/dL (33.0-36.5); MEAN CORPUSCULAR VOLUME 88.8 FL (78-98); MEAN PLATELET VOLUME 7.4 FL (7.4-10.4); MONOCYTES # (AUTO) 0.6 X10'3 (0-0.9); MONOCYTES % (AUTO) 9.7 % (2-12); NEUTROPHILS # (AUTO) 2.8 X10'3 (1.8-7.7); PLATELET COUNT 288 X10'3 (140-440); RED BLOOD COUNT 4.59 X10'6 (4.70-6.10); RED CELL DISTRIBUTION WIDTH 14.1 % (11.5-14.5); WHITE BLOOD COUNT 6.6 X10'3 (4.5-11.0)
[2024-04-12 12:38] LABS: ALBUMIN 3.5 G/DL (3.4-5.0); ANION GAP 3 (8-16); BLOOD UREA NITROGEN 19 MG/DL (7-18); BUN/CREATININE RATIO 19.8 (10.0-20.0); CALCIUM 8.5 MG/DL (8.5-10.1); CHLORIDE 106 MMOL/L (99-107); CREATININE 0.96 MG/DL (0.60-1.10); GLUCOSE 103 MG/DL (70-104); POTASSIUM 3.9 MMOL/L (3.5-5.1); SODIUM 139 MMOL/L (135-145); THYROID STIMULATING HORMONE 1.06 ulU/ml (0.34-4.50); TOTAL CARBON DIOXIDE 29.9 MMOL/L (24-32); eCRCL 107 ML/MIN; eGFR > 90 ML/MIN
[2024-04-12 12:51] LABS: ETHANOL < 10 MG/DL (<10)
[2024-04-12 12:52] LABS: BILIRUBIN,URINE NEGATIVE (Neg); CLARITY,URINE SLIGHTLY CLOUDY (Clear); COLOR,URINE YELLOW (Yellow); GLUCOSE, URINE NEGATIVE (Neg); KETONES,URINE NEGATIVE (Neg); LEUKOCYTE ESTERASE ,URINE NEGATIVE (Neg); NITRITES, URINE NEGATIVE (Neg); OCCULT BLOOD,URINE NEGATIVE (Neg); PROTEIN,URINE TRACE mg/dl (Neg)
[2024-04-12 12:54] LABS: URINE AMPHETAMINE SCREEN POSITIVE (Neg); URINE BARBITUATE SCREEN NEGATIVE (Neg); URINE BENZODIAZEPINES SCREEN NEGATIVE (Neg); URINE CANNABINOID SCREEN POSITIVE (Neg); URINE COCAINE SCREEN NEGATIVE (Neg); URINE METHADONE SCREEN NEGATIVE (Neg); URINE OPIATE SCREEN NEGATIVE (Neg); URINE PHENCYCLIDINE SCREEN NEGATIVE (Neg)
[2024-04-12 12:59] LABS: UA COLLECTION TYPE VOIDED
[2024-04-12 13:00] LABS: MUCUS STRANDS FEW /LPF (Neg); SPERM FEW /HPF (NEGATIVE)
[2024-04-12 13:01] LABS: BACTERIA,URINE FEW /HPF (Neg); SQUAMOUS EPITHELIAL CELL,UR MODERATE /LPF (FEW); WBC,URINE 0-4 /HPF (0-4)
[2024-04-12 14:17] VITALS: BP 142/85; PULSE 99; RESP 16; TEMP 97.8; O2SAT 99
== END 2024-04-12 14:10 | disposition home or self-care (01) ==
LOC: ER 11:38
DX: F15.20 Other stimulant dependence, uncomplicated (principal); F32.A Depression, unspecified; F20.9 Schizophrenia, unspecified; F11.90 Opioid use, unspecified, uncomplicated; F19.90 Other psychoactive substance use, unspecified, uncomplicated; Z59.00 Homelessness unspecified; Z60.2 Problems related to living alone; Z56.0 Unemployment, unspecified; Z20.822 Contact with and (suspected) exposure to COVID-19
CPT/HCPCS: 36415; 80048; 80305; 80320; 81001; 84443; 85025; 99283

== ENCOUNTER 2024-04-13 00:11 | Emergency (ER) | payer MEDICAID ==
[~2024-04-13] VITALS: Ht 180.3 cm; Wt 65.9 kg
[2024-04-13 00:19] VITALS: BP 100/62; PULSE 101; TEMP 97.8; O2SAT 94
[2024-04-13 01:31] LABS: BASOPHILS # (AUTO) 0.1 X10'3 (0-0.2); EOSINOPHILS # (AUTO) 0.2 X10'3 (0-0.9); EOSINOPHILS % (AUTO) 2.5 % (0-6); HEMATOCRIT 39.3 % (42.0-52.0); HEMOGLOBIN 13.1 g/dl (14.0-17.9); LYMPHOCYTES # (AUTO) 2.6 X10'3 (1.1-4.8); LYMPHOCYTES % (AUTO) 39.1 % (21-51); MEAN CORPUSCULAR HEMOGLOBIN 29.3 PG (27.0-31.0); MEAN CORPUSCULAR HGB CONC 33.4 g/dL (33.0-36.5); MEAN CORPUSCULAR VOLUME 87.8 FL (78-98); MEAN PLATELET VOLUME 7.6 FL (7.4-10.4); MONOCYTES # (AUTO) 0.5 X10'3 (0-0.9); MONOCYTES % (AUTO) 7.7 % (2-12); NEUTROPHILS # (AUTO) 3.3 X10'3 (1.8-7.7); NEUTROPHILS % (AUTO) 49.7 % (42-75); PLATELET COUNT 289 X10'3 (140-440); RED BLOOD COUNT 4.48 X10'6 (4.70-6.10); WHITE BLOOD COUNT 6.7 X10'3 (4.5-11.0)
[2024-04-13 01:56] LABS: ALANINE AMINOTRANSFERASE 25 U/L (12-78); ALBUMIN 3.7 G/DL (3.4-5.0); ALBUMIN/GLOBULIN RATIO 1.2 (1.1-1.5); ALKALINE PHOSPHATASE 49 IU/L (46-116); ANION GAP 7 (8-16); ASPARTATE AMINO TRANSFERASE 20 U/L (10-37); BILIRUBIN,TOTAL 0.3 MG/DL (0.1-1.0); BLOOD UREA NITROGEN 22 MG/DL (7-18); BUN/CREATININE RATIO 21.4 (10.0-20.0); CHLORIDE 106 MMOL/L (99-107); CREATININE 1.03 MG/DL (0.60-1.10); GLUCOSE 90 MG/DL (70-104); POTASSIUM 3.7 MMOL/L (3.5-5.1); SODIUM 140 MMOL/L (135-145); TOTAL CARBON DIOXIDE 26.9 MMOL/L (24-32); TOTAL PROTEIN 6.8 G/DL (6.4-8.2); eCRCL 100 ML/MIN; eGFR 86 ML/MIN
[2024-04-13 02:49] LABS: THYROID STIMULATING HORMONE 1.35 ulU/ml (0.34-4.50)
[2024-04-13 03:24] LABS: BILIRUBIN,URINE NEGATIVE (Neg); CLARITY,URINE CLEAR (Clear); COLOR,URINE YELLOW (Yellow); GLUCOSE, URINE NEGATIVE (Neg); KETONES,URINE NEGATIVE (Neg); LEUKOCYTE ESTERASE ,URINE NEGATIVE (Neg); NITRITES, URINE NEGATIVE (Neg); OCCULT BLOOD,URINE NEGATIVE (Neg); PROTEIN,URINE NEGATIVE (Neg); UROBILINOGEN,URINE 0.2 E.U/dL (0.2-1.0)
[2024-04-13 03:33] LABS: URINE AMPHETAMINE SCREEN POSITIVE (Neg); URINE BARBITUATE SCREEN NEGATIVE (Neg); URINE BENZODIAZEPINES SCREEN NEGATIVE (Neg); URINE CANNABINOID SCREEN NEGATIVE (Neg); URINE COCAINE SCREEN NEGATIVE (Neg); URINE METHADONE SCREEN NEGATIVE (Neg); URINE OPIATE SCREEN NEGATIVE (Neg); URINE PHENCYCLIDINE SCREEN NEGATIVE (Neg)
[2024-04-13 03:37] LABS: UA COLLECTION TYPE CLN CATCH MIDSTREAM
[2024-04-13 06:45] VITALS: RESP 16
== END 2024-04-13 07:32 | disposition left against medical advice (07) ==
LOC: ER 00:12
DX: Z73.6 Limitation of activities due to disability (principal); R45.851 Suicidal ideations; R45.850 Homicidal ideations; F20.9 Schizophrenia, unspecified; F32.A Depression, unspecified; F19.10 Other psychoactive substance abuse, uncomplicated; F15.90 Other stimulant use, unspecified, uncomplicated; F11.90 Opioid use, unspecified, uncomplicated; Z59.00 Homelessness unspecified; Z60.2 Problems related to living alone; Z56.0 Unemployment, unspecified; Z20.822 Contact with and (suspected) exposure to COVID-19
CPT/HCPCS: 36415; 80053; 80305; 81003; 84443; 85025; 87811; 99284; 99285

== ENCOUNTER 2024-04-13 20:18 | Emergency (ER) | payer MEDICAID ==
[~2024-04-13] VITALS: Ht 172.7 cm; Wt 65.2 kg
[2024-04-13 20:38] VITALS: BP 116/75; PULSE 104; RESP 16; TEMP 98.3; O2SAT 97
== END 2024-04-13 20:56 | disposition home or self-care (01) ==
LOC: ER 20:18
DX: F20.9 Schizophrenia, unspecified (principal); R45.851 Suicidal ideations; F32.A Depression, unspecified; F15.90 Other stimulant use, unspecified, uncomplicated; Z59.00 Homelessness unspecified
CPT/HCPCS: 99281

== ENCOUNTER 2024-04-16 23:20 | Emergency (ER) | payer MEDICAID ==
[~2024-04-16] VITALS: Ht 172.7 cm; Wt 64.0 kg
[2024-04-16 23:24] VITALS: BP 116/72; PULSE 119; RESP 18; TEMP 98.3; O2SAT 98
== END 2024-04-16 23:43 | disposition home or self-care (01) ==
LOC: ER 23:22
DX: Z04.6 Encounter for general psychiatric examination, requested by authority (principal); R00.0 Tachycardia, unspecified; F20.9 Schizophrenia, unspecified; F32.A Depression, unspecified; F15.90 Other stimulant use, unspecified, uncomplicated; Z59.00 Homelessness unspecified
CPT/HCPCS: 99281

== ENCOUNTER 2024-04-17 02:52 | Emergency (ER) | payer MEDICAID ==
[~2024-04-17] VITALS: Ht 167.6 cm; Wt 65.5 kg
[2024-04-17 02:58] VITALS: BP 110/72; PULSE 119; RESP 18; TEMP 98.7; O2SAT 98
== END 2024-04-17 03:11 | disposition home or self-care (01) ==
LOC: ER 02:53
DX: F20.9 Schizophrenia, unspecified (principal); F32.A Depression, unspecified; F15.90 Other stimulant use, unspecified, uncomplicated; Z59.00 Homelessness unspecified
CPT/HCPCS: 99281

== ENCOUNTER 2024-09-04 01:44 | Inpatient (IN) | payer MEDICAID ==
[~2024-09-04] VITALS: Ht 170.2 cm; Wt 74.4 kg
[2024-09-04] MEDS ORDERED: iohexol 350MG/ML 100ml bottle IV ONE ×2 (02:16→02:42)
[2024-09-04 02:26] LABS: BASOPHILS % (AUTO) 0.6 % (0-1); EOSINOPHILS % (AUTO) 0.5 % (0-6); HEMOGLOBIN 11.6 g/dl (14.0-17.9); LYMPHOCYTES # (AUTO) 1.7 X10'3 (1.1-4.8); LYMPHOCYTES % (AUTO) 19.9 % (21-51); MEAN CORPUSCULAR HEMOGLOBIN 31.2 PG (27.0-31.0); MEAN CORPUSCULAR HGB CONC 34.2 g/dL (33.0-36.5); MEAN CORPUSCULAR VOLUME 91.4 FL (78-98); MEAN PLATELET VOLUME 8.2 FL (7.4-10.4); MONOCYTES # (AUTO) 0.9 X10'3 (0-0.9); MONOCYTES % (AUTO) 10.2 % (2-12); NEUTROPHILS % (AUTO) 68.8 % (42-75); PLATELET COUNT 352 X10'3 (140-440); RED BLOOD COUNT 3.72 X10'6 (4.70-6.10); RED CELL DISTRIBUTION WIDTH 13.5 % (11.5-14.5); WHITE BLOOD COUNT 8.7 X10'3 (4.5-11.0)
[2024-09-04 02:50] LABS: ALANINE AMINOTRANSFERASE 25 U/L (12-78); ALBUMIN 2.9 G/DL (3.4-5.0); ALBUMIN/GLOBULIN RATIO 0.7 (1.1-1.5); ALKALINE PHOSPHATASE 62 IU/L (46-116); ANION GAP 4 (8-16); BILIRUBIN,TOTAL 0.4 MG/DL (0.1-1.0); BLOOD UREA NITROGEN 19 MG/DL (7-18); BUN/CREATININE RATIO 28.8 (10.0-20.0); CALCIUM 8.2 MG/DL (8.5-10.1); CHLORIDE 109 MMOL/L (99-107); CREATININE 0.66 MG/DL (0.60-1.10); GLUCOSE 140 MG/DL (70-104); SALICYLATE 1.2 MG/DL (4.0-20.0); SODIUM 142 MMOL/L (135-145); TOTAL CARBON DIOXIDE 28.9 MMOL/L (24-32); TOTAL PROTEIN 6.9 G/DL (6.4-8.2); eCRCL 156 ML/MIN; eGFR > 90 ML/MIN
[2024-09-04 02:51] LABS: ASPARTATE AMINO TRANSFERASE 33 U/L (10-37); POTASSIUM 4.3 MMOL/L (3.5-5.1)
[2024-09-04 04:08] LABS: BILIRUBIN,URINE NEGATIVE (Neg); CLARITY,URINE CLEAR (Clear); COLOR,URINE YELLOW (Yellow); GLUCOSE, URINE NEGATIVE (Neg); KETONES,URINE NEGATIVE (Neg); LEUKOCYTE ESTERASE ,URINE NEGATIVE (Neg); NITRITES, URINE NEGATIVE (Neg); OCCULT BLOOD,URINE TRACE-INTACT (Neg); PROTEIN,URINE NEGATIVE (Neg)
[2024-09-04 04:09] LABS: UA COLLECTION TYPE CLN CATCH MIDSTREAM
[2024-09-04 04:16] LABS: BACTERIA,URINE NONE SEEN /HPF (Neg); RBC,URINE 0-2 /HPF (0-2); SQUAMOUS EPITHELIAL CELL,UR NONE SEEN /LPF (FEW); WBC,URINE NONE SEEN /HPF (0-4)
[2024-09-04 04:20] LABS: URINE AMPHETAMINE SCREEN POSITIVE (Neg); URINE BARBITUATE SCREEN NEGATIVE (Neg); URINE BENZODIAZEPINES SCREEN NEGATIVE (Neg); URINE CANNABINOID SCREEN POSITIVE (Neg); URINE COCAINE SCREEN NEGATIVE (Neg); URINE METHADONE SCREEN NEGATIVE (Neg); URINE OPIATE SCREEN NEGATIVE (Neg); URINE PHENCYCLIDINE SCREEN NEGATIVE (Neg)
[2024-09-04] MEDS: diphenhydrAMINE 50 mg/ml inj IM ONE (05:38)
[2024-09-04] MEDS: haloperidol lactate 5mg/ml inj IM ONE (05:39)
[2024-09-04] MEDS: LORazepam 2 mg/ml vial IM ONE (05:39)
[2024-09-04] MEDS ORDERED: loperamide 2mg capsule PO PRN (14:50)
[2024-09-04] MEDS ORDERED: ondansetron 4mg rapidly disintigrating tab PO PRN (14:50)
[2024-09-04] MEDS ORDERED: magnesium hydroxide 30ml (MOM) UD suspension PO PRN (14:50)
[2024-09-04] MEDS ORDERED: mag hydrox/Alum hydrox/simeth 30ml oral suspension PO PRN (14:50)
[2024-09-04] MEDS ORDERED: chlorproMAZINE 25mg tablet PO PRN (14:50)
[2024-09-04 15:22] VITALS: BP 102/61; PULSE 104; RESP 12; TEMP 98.3; O2SAT 97
[2024-09-04] MEDS ORDERED: diphenhydrAMINE 25mg capsule PO PRN (15:30)
[2024-09-04 19:00] VITALS: RESP 20
[2024-09-04 20:00] VITALS: BP 102/61; PULSE 105; RESP 20; TEMP 98.4; O2SAT 97
[2024-09-05 07:00] VITALS: RESP 17; O2SAT 100
[2024-09-05 07:31] LABS: CHOLESTEROL 96 MG/DL (0-200); HDL CHOLESTEROL 48 MG/DL (35-60); LDL CHOLESTEROL 36 MG/DL (50-100); TRIGLYCERIDES 27 MG/DL (20-135)
[2024-09-05 08:00] VITALS: BP 95/59; PULSE 112; RESP 17; TEMP 96.8; O2SAT 100
[2024-09-05] MEDS: nicotine 14mg patch - 24hr TD ONE (16:05)
[2024-09-05] MEDS: acetaminophen 325mg tablet PO PRN (17:51)
[2024-09-05 19:00] VITALS: RESP 16; O2SAT 98
[2024-09-05 20:00] VITALS: BP 122/69; PULSE 76; RESP 16; TEMP 97.9; O2SAT 98
[2024-09-05] MEDS: mirtazapine 15mg tablet PO SCH (20:08)
[2024-09-05] MEDS: olanzapine 10mg tablet PO SCH (20:08)
[2024-09-05] MEDS: busPIRone 5mg tablet PO SCH (20:09)
[2024-09-06 07:44] VITALS: BP 118/70; PULSE 70; RESP 16; TEMP 98.7; O2SAT 97
[2024-09-06 08:00] VITALS: RESP 16; O2SAT 97
[2024-09-06] MEDS ORDERED: nicotine 14mg patch - 24hr TD SCH (08:00)
[2024-09-06] MEDS: normal saline 1000ml 1,000 ML IV ONE (11:08)
[2024-09-06] MEDS: normal saline 1000ml 1,000 ML IV SCH (12:14)
[2024-09-06 20:00] VITALS: BP 119/64; PULSE 88; RESP 16; TEMP 98.2; O2SAT 98
[2024-09-07 07:16] VITALS: BP 112/68; PULSE 100; RESP 16; TEMP 99.1; O2SAT 98
[2024-09-07 08:00] VITALS: RESP 16; O2SAT 98
[2024-09-07 19:00] VITALS: RESP 16; O2SAT 97
[2024-09-07 19:19] VITALS: BP 121/69; PULSE 89; RESP 16; TEMP 98.5; O2SAT 97
[2024-09-07] MEDS: traZODone 50mg tablet PO PRN (20:56)
[2024-09-08 07:51] VITALS: RESP 12; O2SAT 100
[2024-09-08 08:00] VITALS: BP 111/71; PULSE 68; RESP 12; TEMP 97.3; O2SAT 100
[2024-09-08 19:00] VITALS: RESP 18; O2SAT 99
[2024-09-08 19:24] VITALS: BP 134/93; PULSE 98; RESP 18; TEMP 97.2; O2SAT 99
[2024-09-08] MEDS: mirtazapine 15mg tablet PO SCH (20:53)
[2024-09-08 21:00] VITALS: PULSE 80
[2024-09-09 07:00] VITALS: RESP 16; O2SAT 97
[2024-09-09 08:00] VITALS: BP 114/73; PULSE 98; RESP 16; TEMP 98.1; O2SAT 97
[2024-09-09] MEDS ORDERED: MIRT-87 PO (13:34)
[2024-09-09] MEDS ORDERED: OLAN10TA73 PO (13:34)
[2024-09-09] MEDS ORDERED: TRAZ-251 PO (13:34)
[2024-09-09] MEDS ORDERED: BUSP5TAB26 PO (13:34)
[2024-09-09 19:00] VITALS: RESP 17; O2SAT 97
[2024-09-09] MEDS: acetaminophen 325mg tablet PO PRN (19:43)
[2024-09-09 20:00] VITALS: BP 108/76; PULSE 92; RESP 17; TEMP 97.9; O2SAT 97
[2024-09-10 07:00] VITALS: RESP 16; O2SAT 97
[2024-09-10 08:00] VITALS: BP 113/61; PULSE 89; RESP 16; TEMP 97.8; O2SAT 97
== END 2024-09-10 13:48 | disposition home or self-care (01) | DRG 750 ==
LOC: ER 01:48 → ED HOLD 12:30 → ADULT MH 14:44
PROVIDERS: ADMIT Psychiatry & Neurology Psychiatry; ATTEND Psychiatry & Neurology Psychiatry
PROC: B3251ZZ Computerized Tomography (CT Scan) of Bilateral Common Carotid Arteries using Low Osmolar Contrast (ICD-10-PCS; principal; 2024-09-04)
PROC: B32G1ZZ Computerized Tomography (CT Scan) of Bilateral Vertebral Arteries using Low Osmolar Contrast (ICD-10-PCS; 2024-09-04)
PROC: B32R1ZZ Computerized Tomography (CT Scan) of Intracranial Arteries using Low Osmolar Contrast (ICD-10-PCS; 2024-09-04)
PROC: B3281ZZ Computerized Tomography (CT Scan) of Bilateral Internal Carotid Arteries using Low Osmolar Contrast (ICD-10-PCS; 2024-09-04)
PROC: GZHZZZZ Group Psychotherapy (ICD-10-PCS; 2024-09-05)
PROC: GZ51ZZZ Individual Psychotherapy, Behavioral (ICD-10-PCS; 2024-09-05)
DX: F20.9 Schizophrenia, unspecified (principal); R45.851 Suicidal ideations; F32.A Depression, unspecified; F19.10 Other psychoactive substance abuse, uncomplicated; Z20.822 Contact with and (suspected) exposure to COVID-19; M25.562 Pain in left knee; D64.9 Anemia, unspecified; R00.0 Tachycardia, unspecified; F41.9 Anxiety disorder, unspecified; F17.210 Nicotine dependence, cigarettes, uncomplicated; Z79.899 Other long term (current) drug therapy; Z59.02 Unsheltered homelessness
CPT/HCPCS: 36415; 70498; 71045; 73564; 73610; 80053; 80061; 80305; 80329; 81001; 83605; 84145; 85025; 87040; 87081; 87811; 93005; 96372; 99285; J1200; J1630; J2060; J7030; Q9967

== ENCOUNTER 2024-09-17 00:11 | Emergency (ER) | payer MEDICAID ==
[~2024-09-17] VITALS: Ht 170.2 cm; Wt 79.7 kg
[~2024-09-17 00:11] MED LIST changes: +BUSP5TAB26 PO; +MIRT-87 PO; -NO HOME MEDS; +OLAN10TA73 PO; +TRAZ-251 PO
[2024-09-17 00:45] LABS: BASOPHILS # (AUTO) 0.1 X10'3 (0-0.2); BASOPHILS % (AUTO) 0.8 % (0-1); EOSINOPHILS % (AUTO) 0.3 % (0-6); HEMOGLOBIN 12.9 g/dl (14.0-17.9); LYMPHOCYTES # (AUTO) 2.2 X10'3 (1.1-4.8); LYMPHOCYTES % (AUTO) 19.1 % (21-51); MEAN CORPUSCULAR HEMOGLOBIN 30.4 PG (27.0-31.0); MEAN CORPUSCULAR HGB CONC 33.8 g/dL (33.0-36.5); MEAN CORPUSCULAR VOLUME 90.1 FL (78-98); MEAN PLATELET VOLUME 7.7 FL (7.4-10.4); MONOCYTES # (AUTO) 1.1 X10'3 (0-0.9); MONOCYTES % (AUTO) 9.2 % (2-12); NEUTROPHILS # (AUTO) 8.1 X10'3 (1.8-7.7); NEUTROPHILS % (AUTO) 70.6 % (42-75); PLATELET COUNT 320 X10'3 (140-440); RED BLOOD COUNT 4.23 X10'6 (4.70-6.10); RED CELL DISTRIBUTION WIDTH 13.6 % (11.5-14.5); WHITE BLOOD COUNT 11.5 X10'3 (4.5-11.0)
[2024-09-17 01:44] VITALS: BP 124/71; PULSE 120; RESP 24; TEMP 99.9; O2SAT 100
[2024-09-17 02:06] LABS: ALBUMIN 3.8 G/DL (3.4-5.0); ANION GAP 9 (8-16); BLOOD UREA NITROGEN 31 MG/DL (7-18); BUN/CREATININE RATIO 28.4 (10.0-20.0); CALCIUM 8.9 MG/DL (8.5-10.1); CHLORIDE 101 MMOL/L (99-107); CREATININE 1.09 MG/DL (0.60-1.10); GLUCOSE 90 MG/DL (70-104); POTASSIUM 3.8 MMOL/L (3.5-5.1); SODIUM 140 MMOL/L (135-145); THYROID STIMULATING HORMONE 3.72 ulU/ml (0.34-4.50); TOTAL CARBON DIOXIDE 29.7 MMOL/L (24-32); eCRCL 94 ML/MIN; eGFR 81 ML/MIN
[2024-09-17] MEDS ORDERED: OLANZapine 5mg rapidly disint. tablet PO ONE (02:10)
[2024-09-17 02:13] LABS: ETHANOL < 10 MG/DL (<10)
== END 2024-09-17 02:15 | disposition left against medical advice (07) ==
LOC: ER 00:12
DX: Z00.8 Encounter for other general examination (principal); F20.9 Schizophrenia, unspecified; F32.A Depression, unspecified; F12.90 Cannabis use, unspecified, uncomplicated; F15.90 Other stimulant use, unspecified, uncomplicated; Z91.148 Patient's other noncompliance with medication regimen for other reason
CPT/HCPCS: 36415; 80048; 80320; 84443; 85025; 99283

== ENCOUNTER 2024-10-27 22:59 | Emergency (ER) | payer MEDICAID ==
[~2024-10-27] VITALS: Ht 177.8 cm; Wt 64.0 kg
[~2024-10-27 22:59] MED LIST changes: +BUSP10TA3 PO; -BUSP5TAB26 PO; -MIRT-87 PO; +MIRT45TA79 PO; -OLAN10TA73 PO; +OLAN15TA97 PO
[2024-10-27 23:08] VITALS: BP 121/63; PULSE 102; RESP 17; O2SAT 98
[2024-10-27 23:45] VITALS: TEMP 96.8
--- NOTE | 2024-10-27 23:47 | Physician Documentation ---
History of Present Illness ~ Chief Complaint: Mental Health Eval Stated Complaint: SI Time Seen by MD: 23:43 Primary Medical Doctor: None HPI 28-year-old male who presents to the ED in his well known to the ED states he was here for the green scrubs and a night on the hospital. He also says that he was suicidal denies any plan. He was known to this ED for behavioral issues.. Denies any other medical problems Day of Onset: Oct 27, 2024 Medication Reconciliation Allergies: Coded Allergies: No Known Allergies (Unverified , 10/27/24) Scheduled Buspirone HCl (Buspirone HCl), 1 TAB PO TID, (Reported) Mirtazapine (Mirtazapine), 1 TAB PO HS Olanzapine (Olanzapine), 1 TAB PO HS Scheduled PRN Trazodone HCl (Trazodone HCl), 1 TAB PO HS PRN for insomnia, (Reported) Discontinued Medications Mirtazapine (Mirtazapine), 1 TAB PO HS, (Reported) Olanzapine (Olanzapine), 1 TAB PO HS, (Reported) Past Medical History Past Medical History: *PSYCH*, Depression, Schizophrenia Past Surgical History: noncontributory, other Other Past Surgical History: Polysubstance abuse Patient History: Patient reports no known family medical history. Alcohol Use: None Drug Use: methamphetamine, heroin, other Lives with: Alone Lives In: Homeless Occupation: unemployed Review of Systems All Other Systems at this time: Reviewed and Negative ROS As stated above in the HPI, otherwise all systems are reviewed and negative. Physical Exam Vital Signs: Temperature: 96.8, Source: Temporal, Heart Rate: 102, Respiratory Rate: 17, BP: 121/63, Pulse Oximetry: 98, Weight: 63.950 Physical Exam General: Alert, no apparent distress. Psychiatric: Normal mood and affect. Skin: Normal color, warm and dry. No edema, no ecchymosis. Progress Results/Orders Results/Orders Vital Signs 10/27/24 23:08 Temp 96.8 Pulse 102 Resp 17 B/P (MAP) 121/63 Pulse Ox 98 Medical Decision Making Findings Patient appears to be high on methamphetamine. States his suicide ideation but does not have a plan states he also wants to green scrubs to stay here overnight. Presents more as it behavioral ploy. Do not see any need to have [facility] evaluate him based on these findings at this time Differential Dx:Considerations: Include: Alcohol abuse, Anxiety, Bipolar disorder, Conversion disorder, Depression, Encephaloathy, Homicidal, Panic disorder, Personality disorder, Schizophrenia, Substance abuse, Suicidal, Other Departure Disposition: 01 HOME / SELF CARE / HOMELESS Impression: Primary Impression: Polysubstance use disorder Additional Impressions: Opioid use disorder, severe, dependence Noncompliance with medication regimen Methamphetamine use disorder, severe Condition: Stable Discharge Instructions: Medical Screening Exam Referrals: NO PRIMARY CARE PROVIDER (PCP) Signature Scribe Signature: t Attestation: The note accurately reflects work and decisions made by me.Jamarcus Mayfield NP 10/27/24 23:46 JAMARCUS CAMPBELL NP Oct 27, 2024 23:47
== END 2024-10-27 23:48 | disposition home or self-care (01) ==
LOC: ER 23:00
DX: F19.90 Other psychoactive substance use, unspecified, uncomplicated (principal); F11.20 Opioid dependence, uncomplicated; F15.20 Other stimulant dependence, uncomplicated; F20.9 Schizophrenia, unspecified; Z91.148 Patient's other noncompliance with medication regimen for other reason
CPT/HCPCS: 99281

== ENCOUNTER 2024-11-06 01:51 | Emergency (ER) | payer MEDICAID ==
[~2024-11-06] VITALS: Ht 167.6 cm; Wt 50.2 kg
[2024-11-06 01:52] VITALS: BP 123/76; PULSE 109; RESP 18; TEMP 97.6; O2SAT 98
== END 2024-11-06 05:10 | disposition left against medical advice (07) ==
LOC: ER 01:52
DX: M79.674 Pain in right toe(s) (principal); Z53.21 Procedure and treatment not carried out due to patient leaving prior to being seen by health care provider

== ENCOUNTER 2024-12-14 20:10 | Emergency (ER) | payer MEDICAID ==
[~2024-12-14] VITALS: Ht 180.3 cm; Wt 56.8 kg
--- NOTE | 2024-12-15 | Physician Documentation ---
History of Present Illness ~ Chief Complaint: Overdose Stated Complaint: OD Time Seen by MD: 23:40 Primary Medical Doctor: None Mode of Arrival: EMS HPI Patient presents to the emergency room after receiving Narcan. He was appar ently found by bystanders who administered Narcan. EMS also administered Narcan. While waiting in the triage she did vomit. Only complaint now that has that he is thirsty anal still nauseous. No Zofran was administered by EMS. He states he was smoking some fentanyl for recreation he denies any SI/HI. History of prior overdose Medication Reconciliation Allergies: Coded Allergies: No Known Allergies (Unverified , 11/06/24) Scheduled Buspirone HCl (Buspirone HCl), 1 TAB PO TID, (Reported) Mirtazapine (Mirtazapine), 1 TAB PO HS Olanzapine (Olanzapine), 1 TAB PO HS Scheduled PRN Trazodone HCl (Trazodone HCl), 1 TAB PO HS PRN for insomnia, (Reported) Past Medical History Past Medical History: *PSYCH*, Depression, Schizophrenia Past Surgical History: noncontributory, other Other Past Surgical History: Polysubstance abuse Patient History: Patient reports no known family medical history. Alcohol Use: None Drug Use: methamphetamine, heroin, other Lives with: Alone Lives In: Homeless Occupation: unemployed Review of Systems ROS All review of systems negative except as per HPI Physical Exam Vital Signs: Temperature: 98.0, Source: Temporal, Heart Rate: 64, Respiratory Rate: 16, BP: 118/81, Pulse Oximetry: 100, Weight: 56.820 Oxygen Flow Rate: 0 Physical Exam General: Patient is sleeping and easily arousable in no acute distress. Head: Normocephalic and atraumatic. Eyes: Conjunctival normal. EOMI. PERRL. ENT: Mucous membranes moist. Neck: Supple, trachea is midline. Chest: Clear to auscultation bilaterally without rales, rhonchi, or wheezes. There is no accessory muscle use or retractions. Cardiac: RRR without murmurs, gallops, or rubs. Abd: Soft, nondistended, nontender, with normoactive bowel sounds. No guarding, rebound, or rigidity. Extremities: Normal strength. Normal range of motion. No deformities or edema. Progress Results/Orders Results/Orders Completed Orders - KENRICK QUINN MD Ondansetron Disint. Tablet (Zofran Odt T (12/15/24 00:00) Medications Received in ER Medications (Trade) Dose Ordered Sig/Neptali Route PRN Reason Start Time Stop Time Status Last Admin Dose Admin (Zofran ODT tablet) 8 mg ONCE ONCE PO 12/15/24 00:00 12/15/24 00:01 DC 12/15/24 00:05 8 MG Vital Signs 12/14/24 12/14/24 12/14/24 20:42 23:07 23:55 Temp 98.0 Pulse 92 64 Resp 23 12 16 B/P (MAP) 113/82 118/81 (93) Pulse Ox 98 100 O2 Flow Rate 0 Medical Decision Making Findings Patient presented to the emergency room status post overdose as per HPI. I do not suspect suicidal ideation. The need to stop doing drugs discussed. Patient monitored for a time to ensure no need for Narcan re administration. Departure Disposition: HOME / SELF CARE / HOMELESS Impression: Primary Impression: Poisoning by opiate or related narcotic Condition: Stable Discharge Instructions: Accidental Drug Poisoning, Adult Referrals: NO PRIMARY CARE PROVIDER (PCP) Prescriptions Naloxone HCl (Narcan) 4 Mg/Actuation [place] 1 SPRAYS BOTHNARES ONCE for 1 Day, #1 EA 0 Refills Prov: KENRICK QUINN MD 12/15/24 Education Educated: Patient Educated regarding: diagnosis, need for follow up Signature Scribe Signature: No scribe Attestation: The note accurately reflects work and decisions made by me.Kenrick Quinn MD 12/15/24 01:17 KENRICK QUINN MD Dec 15, 2024 00:00
[2024-12-15] MEDS: ondansetron 4mg rapidly disintigrating tab PO ONE (00:05)
[2024-12-15] MEDS ORDERED: NALO4SPR BOTHNARES (01:16)
[2024-12-15 01:27] VITALS: BP 108/77; PULSE 98; RESP 16; TEMP 98; O2SAT 98
== END 2024-12-15 01:41 | disposition home or self-care (01) ==
LOC: ER 20:11
DX: T40.601A Poisoning by unspecified narcotics, accidental (unintentional), initial encounter (principal); F20.9 Schizophrenia, unspecified; F32.A Depression, unspecified; F17.200 Nicotine dependence, unspecified, uncomplicated; F15.90 Other stimulant use, unspecified, uncomplicated; Y92.89 Other specified places as the place of occurrence of the external cause
CPT/HCPCS: 99284

== ENCOUNTER 2024-12-24 03:28 | Emergency (ER) | payer MEDICAID ==
[~2024-12-24] VITALS: Ht 170.2 cm; Wt 63.4 kg
[~2024-12-24 03:28] MED LIST changes: +NALO4SPR BOTHNARES
[2024-12-24 03:36] VITALS: BP 116/83; PULSE 116; RESP 16; TEMP 98.1; O2SAT 100
--- NOTE | 2024-12-24 04:22 | Physician Documentation ---
History of Present Illness ~ General Chief Complaint: Multiple Medical Complaints Stated Complaint: GENERAL ILLNESS Time Seen by MD: 04:22 Primary Medical Doctor: None History of Present Illness Initial Comments Patient presents to the emergency room requesting sandwich and blanket. He states he is cold. No other complaints Medication Reconciliation Allergies: Coded Allergies: No Known Allergies (Unverified , 12/24/24) Scheduled Buspirone HCl (Buspirone HCl), 1 TAB PO TID, (Reported) Mirtazapine (Mirtazapine), 1 TAB PO HS Naloxone HCl (Narcan), 1 SPRAYS BOTHNARES ONCE Olanzapine (Olanzapine), 1 TAB PO HS Scheduled PRN Trazodone HCl (Trazodone HCl), 1 TAB PO HS PRN for insomnia, (Reported) Past Medical History Past Medical History: *PSYCH*, Depression, Schizophrenia Past Surgical History: noncontributory, other Other Past Surgical History: Polysubstance abuse Patient History: Patient reports no known family medical history. Alcohol Use: None Drug Use: methamphetamine, heroin, other Lives with: Alone Lives In: Homeless Occupation: unemployed Review of Systems ROS All review of systems negative except as per HPI Physical Exam Physical Exam Vital Signs: Temperature: 98.1, Source: Temporal, Heart Rate: 116, Respiratory Rate: 16, BP: 116/83, Pulse Oximetry: 100, Weight: 63.400 Oxygen Flow Rate: 0 Physical Exam General: Patient is sleeping, easily arousable in no acute distress Head: Normocephalic and atraumatic. Eyes: Conjunctival injection noted. EOMI. Pupils dilated ENT: Mucous membranes moist. Neck: Supple, trachea is midline. Chest: Clear to auscultation bilaterally without rales, rhonchi, or wheezes. There is no accessory muscle use or retractions. Cardiac: Tachycardic and regular without murmurs, gallops, or rubs. Progress Results/Orders Results/Orders Vital Signs 12/24/24 03:36 Temp 98.1 Pulse 116 Resp 16 B/P (MAP) 116/83 Pulse Ox 100 O2 Flow Rate 0 Medical Decision Making Findings Patient presents to the emergency room as per HPI. Mild tachycardia for which she has history of. Possible side effect of methamphetamine. I do not feel emergent labs or imaging is necessary Departure Disposition: 01 HOME / SELF CARE / HOMELESS Impression: Primary Impression: General medical exam Condition: Stable Discharge Instructions: General Discharge Instructions Referrals: NO PRIMARY CARE PROVIDER (PCP) Signature Scribe Signature: No scribe Attestation: The note accurately reflects work and decisions made by me.Kenrick Quinn MD 12/24/24 04:25 KENRICK QUINN MD Dec 24, 2024 04:22
[2025-01-03] MEDS ORDERED: NO HOME MEDS (22:17)
== END 2024-12-24 04:36 | disposition home or self-care (01) ==
LOC: ER 03:31
DX: Z00.8 Encounter for other general examination (principal); F20.9 Schizophrenia, unspecified; F32.A Depression, unspecified; F15.90 Other stimulant use, unspecified, uncomplicated; F11.90 Opioid use, unspecified, uncomplicated
CPT/HCPCS: 99281; 99282

== ENCOUNTER 2024-12-26 01:44 | Emergency (ER) | payer MEDICAID ==
[~2024-12-26] VITALS: Ht 170.2 cm; Wt 72.7 kg
[2024-12-26 01:46] VITALS: BP 140/82; PULSE 94; RESP 18; TEMP 97.8; O2SAT 98
[2024-12-27] MEDS ORDERED: MIRT45TA79 PO (01:44)
[2024-12-27] MEDS ORDERED: OLAN15TA97 PO (01:44)
== END 2024-12-26 04:35 | disposition left against medical advice (07) ==
LOC: ER 01:45
DX: F41.9 Anxiety disorder, unspecified (principal); G47.00 Insomnia, unspecified; R44.0 Auditory hallucinations; Z53.21 Procedure and treatment not carried out due to patient leaving prior to being seen by health care provider

== ENCOUNTER 2024-12-26 23:03 | Emergency (ER) | payer MEDICAID ==
[~2024-12-26] VITALS: Ht 170.2 cm; Wt 62.4 kg
[2024-12-26 23:05] VITALS: BP 111/62; PULSE 84; O2SAT 98
--- NOTE | 2024-12-27 01:38 | Physician Documentation ---
History of Present Illness ~ Chief Complaint: Mental Health Eval Stated Complaint: MH EVAL Time Seen by MD: 01:21 OK to notify your PCP?: Yes Primary Medical Doctor: None Source: patient, RN/MD, RN notes reviewed, old records Mode of Arrival: POV Exam Limitations: no limitations [facility] BED 13 This patient is a 29 y/o male who presents to ED for psychiatric evaluation. Patient is a very poor historian, and unfortunately would not participate in answering any questions. He stated initially that he had stopped using his psychiatric medications because he ran out. He was asked if he would be interested in taking his medications, and how he would follow up in the future with picking up and getting his medications prescribed, but again, did not seem interested. Patient upon being discharged asked for another sandwich, and did not make any suicidal or homicidal statements. Patient denies any other associated symptoms at this time. Patient denies any other alleviating or exacerbating factors. Medication Reconciliation Allergies: Coded Allergies: No Known Allergies (Unverified , 12/26/24) Scheduled Buspirone HCl (Buspirone HCl), 1 TAB PO TID, (Reported) Mirtazapine (Mirtazapine), 1 TAB PO HS Naloxone HCl (Narcan), 1 SPRAYS BOTHNARES ONCE Olanzapine (Olanzapine), 1 TAB PO HS Scheduled PRN Trazodone HCl (Trazodone HCl), 1 TAB PO HS PRN for insomnia, (Reported) Past Medical History Past Medical History: *PSYCH*, Depression, Schizophrenia Past Surgical History: noncontributory, other Other Past Surgical History: Polysubstance abuse Patient History: Patient reports no known family medical history. Smoking Status: Unknown if ever smoked Alcohol Use: None Drug Use: methamphetamine, heroin, other Lives with: Alone Lives In: Homeless Occupation: unemployed Review of Systems All Other Systems at this time: Reviewed and Negative Psychiatric: Reports: see HPI Physical Exam Vital Signs: RN Vital Signs have been reviewed: Yes, Temperature: 98.3, Source: Oral, Heart Rate: 84, Respiratory Rate: 15, BP: 111/62, Pulse Oximetry: 98, Weight: 62.360 Oxygen Flow Rate: 0 Physical Exam General: The patient is disheveled. Otherwise well developed, well nourished, nontoxic appearing and is in no acute distress. Skin: [place], warm and dry with no rashes. HEENT: Head was normocephalic and atraumatic. Eyes - pupils equal, round, reactive to light and accommodation. Extraocular movements were intact. Conjunctivae were nonicteric. Ears - bilateral tympanic membranes were normal. The mouth and oropharynx were clear with moist mucous membranes. There were no pharyngeal exudates or erythema. Neck: Supple and nontender. There was no jugular venous distention, lymphadenopathy, thyromegaly or masses. Chest: Clear to auscultation bilaterally without wheezes, rales or rhonchi. No accessory muscle use. No dullness to percussion. Heart: Rate regular and rhythmic. S1, S2. No murmurs. Palpation of the chest wall was normal. No rubs or thrills. Abdomen: Soft, nontender and nondistended. Positive bowel sounds. No guarding or rebound. No hepatosplenomegaly or palpable masses. Extremities: No cyanosis, clubbing or edema. The patient moves all extre mities. Pulses were equal and symmetric. Neurologic: Cranial nerves II-XII were intact. Sensation was intact to light touch throughout. Motor strength was 5/5 in all four extremities. Deep tendon reflexes were intact in both upper and lower extremities. Psychologic: Uncooperative with history taking. Otherwise the patient was oriented to person, place and time. The patient demonstrated appropriate judgement and insight. Progress Results/Orders Reviewed/noted all lab results: Yes Results/Orders Orders - GRAZYNA GALO MD Urinalysis, Cult If Indicated (12/27/24 00:36) Drug Screen, Urine (12/27/24 00:36) Completed Orders - GRAZYNA GALO MD Olanzapine Disint. Tablet (Zyprexa Zydis (12/27/24 01:45) Medications Received in ER Medications (Trade) Dose Ordered Sig/Neptali Route PRN Reason Start Time Stop Time Status Last Admin Dose Admin (ZyPREXA zydis tablet) 10 mg ONCE ONCE PO 12/27/24 01:45 12/27/24 01:46 DC 12/27/24 02:30 10 MG Vital Signs 12/26/24 12/27/24 12/27/24 23:05 02:20 02:40 Temp 98.3 98.3 Pulse 84 Resp 15 16 B/P (MAP) 111/62 Pulse Ox 98 O2 Flow Rate 0 Re-Evaluation Re-Evaluation : Re-Evaluation: Improved Progress Patient was seen and examined. Patient is given reassurance. Patient is homeless. Patient initially had suicidal ideation complaints which the patient has had multiple times. Often times the patient has patient polysubstance abuse and states he has never been to a pharmacist and has no intention of picking up his medications. Mental health holds he has often discharged with outpatient noncompliance. Reviewing of the medical record he has also had a few inpatient hospitalizations when he is acutely psychotic. Patient denies any suicidal ideation or plan he is asking for food. Initially he refused to talk or participate in any questioning also he was given a urinal for sample when to the bathroom and refused to pee in a cup. Patient is showing purposeful manipulation and malingering behavior. Patient was offered medication refill he was uninterested nevertheless one was provided. Patient was then discharged home. Medical Decision Making Additional info obtained from: old records Differential Dx:Considerations: Include: Alcohol abuse, Anxiety, Bipolar disorder, Conversion disorder, Depression, Homicidal, Panic disorder, Personality disorder, Schizophrenia, Substance abuse, Suicidal, Other Departure Time of Disposition: 01:45 Disposition: 01 HOME / SELF CARE / HOMELESS Impression: Primary Impression: Encounter for psychiatric assessment Additional Impressions: Polysubstance abuse Homelessness Condition: Stable Discharge Instructions: Caring for Your Mental Health, Substance Use Disorder and Mental Illness Additional Instructions: Please fill your medications and take as prescribed. Stop using drugs. Follow up with a mental health professional as soon as possible. If you do not have a counselor or psychiatrist, you may refer to the [facility]. Their information is included in your paperwork. Referrals: NO PRIMARY CARE PROVIDER (PCP) Prescriptions Olanzapine (Olanzapine) 15 Mg Tablet 1 TAB PO HS for 30 Days, #30 TAB 0 Refills Prov: GRAZYNA GALO MD 12/27/24 Mirtazapine (Mirtazapine) 45 Mg Tab.rapdis 1 TAB PO HS for 30 Days, #30 TAB 0 Refills Prov: GRAZYNA GALO MD 12/27/24 Education Educated: Patient Educated regarding: diagnosis, other Signature Scribe Signature: Scribed for Grazyna Galo MD by Darlene Alvarado. 12/20/24 01:47 Attestation: The note accurately reflects work and decisions made by me.Grazyna Galo MD 12/27/24 01:38 GRAZYNA GALO MD Dec 27, 2024 01:38
[2024-12-27] MEDS ORDERED: MIRT45TA79 PO (01:44)
[2024-12-27] MEDS ORDERED: OLAN15TA97 PO (01:44)
[2024-12-27 02:20] VITALS: RESP 16
[2024-12-27] MEDS: OLANZapine 5mg rapidly disint. tablet PO ONE (02:30)
[2024-12-27 02:40] VITALS: TEMP 98.3
== END 2024-12-27 02:43 | disposition home or self-care (01) ==
LOC: ER 23:03
DX: F19.10 Other psychoactive substance abuse, uncomplicated (principal); F20.9 Schizophrenia, unspecified; Z59.00 Homelessness unspecified
CPT/HCPCS: 99283

== ENCOUNTER 2024-12-31 02:24 | Emergency (ER) | payer MEDICAID ==
[~2024-12-31] VITALS: Ht 170.2 cm; Wt 62.2 kg
[2024-12-31 02:26] VITALS: BP 123/73; PULSE 115; RESP 18; TEMP 97.2; O2SAT 98
--- NOTE | 2024-12-31 02:59 | Physician Documentation ---
History of Present Illness ~ Chief Complaint: Mental Health Eval Stated Complaint: MEDICAL SCREENING EX Time Seen by MD: 02:54 Primary Medical Doctor: Jessica HPI Patient presents to the emergency room for evaluation. When asked why he wants to be seen he says to be mentally evaluated. He does not volunteer any other history than this Medication Reconciliation Allergies: Coded Allergies: No Known Allergies (Unverified , 12/31/24) Scheduled Buspirone HCl (Buspirone HCl), 1 TAB PO TID, (Reported) Mirtazapine (Mirtazapine), 1 TAB PO HS Naloxone HCl (Narcan), 1 SPRAYS BOTHNARES ONCE Olanzapine (Olanzapine), 1 TAB PO HS Scheduled PRN Trazodone HCl (Trazodone HCl), 1 TAB PO HS PRN for insomnia, (Reported) Past Medical History Past Medical History: *PSYCH*, Depression, Schizophrenia Past Surgical History: noncontributory, other Other Past Surgical History: Polysubstance abuse Patient History: Patient reports no known family medical history. Alcohol Use: None Drug Use: methamphetamine, heroin, other Lives with: Alone Lives In: Homeless Occupation: unemployed Review of Systems ROS Patient was uncooperative with review of systems Physical Exam Vital Signs: Temperature: 97.2, Source: Temporal, Heart Rate: 115, Respiratory Rate: 18, BP: 123/73, Pulse Oximetry: 98, Weight: 62.200 Oxygen Flow Rate: 0 General Appearance General: Patient is awake, alert, uncooperative with questioning Head: Normocephalic and atraumatic. Eyes: . EOMI. Pupils bilaterally severely dilated and injected sclera. Concordant gaze ENT: Mucous membranes moist. Neck: Supple, trachea is midline. Chest: Clear to auscultation bilaterally without rales, rhonchi, or wheezes. There is no accessory muscle use or retractions. Cardiac: Tachycardic and regular without murmurs, gallops, or rubs. Psych: Unusual affect, cooperative, slow to respond Progress Results/Orders Results/Orders Vital Signs 12/31/24 02:26 Temp 97.2 Pulse 115 Resp 18 B/P (MAP) 123/73 Pulse Ox 98 O2 Flow Rate 0 Medical Decision Making Findings Patient presents to the emergency room for evaluation. Patient requesting mental health evaluation however he does not provide any other information for this. He is well known to the emergency room. Patient does not demonstrate any suicidal ideation to me Departure Disposition: HOME / SELF CARE / HOMELESS Impression: Primary Impression: Mental disorder Condition: Fair Discharge Instructions: Medical Screening Exam Additional Instructions: Our psychiatric services are not available at this time. please returned in the morning for re-evaluation Referrals: NO PRIMARY CARE PROVIDER (PCP) Signature Scribe Signature: No scribe Attestation: The note accurately reflects work and decisions made by me.Kenrick Quinn MD 12/31/24 02:58 KENRICK QUINN MD Dec 31, 2024 02:59
[2025-01-03] MEDS ORDERED: NO HOME MEDS (22:17)
== END 2024-12-31 03:11 | disposition home or self-care (01) ==
LOC: ER 02:25
DX: F20.9 Schizophrenia, unspecified (principal); F32.A Depression, unspecified; F15.90 Other stimulant use, unspecified, uncomplicated; F11.90 Opioid use, unspecified, uncomplicated; F19.90 Other psychoactive substance use, unspecified, uncomplicated; Z56.0 Unemployment, unspecified; Z60.2 Problems related to living alone; Z59.00 Homelessness unspecified; Z79.899 Other long term (current) drug therapy
CPT/HCPCS: 99282

== ENCOUNTER 2025-01-09 22:00 | Emergency (ER) | payer MEDICAID ==
[~2025-01-09 22:00] MED LIST changes: -BUSP10TA3 PO; -MIRT45TA79 PO; -NALO4SPR BOTHNARES; +NO HOME MEDS; -OLAN15TA97 PO; -TRAZ-251 PO
--- NOTE | 2025-01-09 23:04 | Physician Documentation ---
History of Present Illness ~ Chief Complaint: Mental Health Eval Stated Complaint: MH Time Seen by MD: 22:36 Primary Medical Doctor: None HPI Patient is a 29-year-old male with history of schizophrenia coming in today because he has been off of his meds for several months unable to care for himself he is currently suicidal and states that he is going to hang himself with a red rope. Patient states that he has no where to go and no means to get his medications. With an active suicidal plan Medication Reconciliation Allergies: Coded Allergies: No Known Allergies (Unverified , 12/31/24) Miscellaneous Medications Home Med List (No Home Medications), (Reported) Discontinued Medications Buspirone HCl (Buspirone HCl), 1 TAB PO TID, (Reported) Discontinued Reason: patient no longer taking Mirtazapine (Mirtazapine), 1 TAB PO HS Discontinued Reason: patient no longer taking Naloxone HCl (Narcan), 1 SPRAYS BOTHNARES ONCE Discontinued Reason: patient no longer taking Olanzapine (Olanzapine), 1 TAB PO HS Discontinued Reason: patient no longer taking Trazodone HCl (Trazodone HCl), 1 TAB PO HS PRN for insomnia, (Reported) Discontinued Reason: patient no longer taking Past Medical History Past Medical History: *PSYCH*, Depression, Schizophrenia Past Surgical History: noncontributory, other Other Past Surgical History: Polysubstance abuse Patient History: Patient reports no known family medical history. Alcohol Use: None Drug Use: methamphetamine, heroin, other Lives with: Alone Lives In: Homeless Occupation: unemployed Review of Systems All Other Systems at this time: Reviewed and Negative Psychiatric: Reports: see HPI Physical Exam Vital Signs: RN Vital Signs have been reviewed: Yes, Temperature: 98.1, Source: Temporal, Heart Rate: 104, Respiratory Rate: 24, BP: 141/76, Pulse Oximetry: 98 General Appearance: alert, WD/WN, no apparent distress Head: normal inspection Respiratory: lungs clear, normal breath sounds, no respiratory distress Chest: no accessory muscle use Cardiovascular: regular rate, rhythm Appearance/Memory/Insight: disheveled Behavior/Eye contact/Speech: cooperative, avoids eye contact, increased rate of speech, compulsive Thought/Hallucinations: flight of ideas, paranoid, rambling conversation Affect: anxious Skin: warm/dry, normal color Progress Progress Note 1729: Patient sleeping undisturbed. According to staff patient primarily sleeps and eats does not interact very much. Apparently [facility] are going to to attempt to have patient conserved. This is likely secondary to meth use leading to psychosis Results/Orders Results/Orders Vital Signs 01/09/25 01/09/25 01/09/25 01/10/25 22:16 22:20 22:30 05:59 Temp 98.1 97.3 Pulse 104 98 77 Resp 24 16 18 17 B/P (MAP) 141/76 132/80 (97) 106/65 (79) Pulse Ox 98 99 98 01/10/25 08:22 Resp 16 B/P (MAP) Laboratory Tests Test 01/09/25 22:25 01/09/25 22:46 01/10/25 02:05 SARS-CoV-2 Antigen (Rapid) Negative White Blood Count 9.1 Red Blood Count 4.81 Hemoglobin 14.0 Hematocrit 41.6 L Mean Corpuscular Volume 86.4 Mean Corpuscular Hemoglobin 29.0 Mean Corpuscular Hemoglobin Concent 33.6 Red Cell Distribution Width 15.6 H Platelet Count 330 Mean Platelet Volume 8.0 Neutrophils (%) (Auto) 42.6 Lymphocytes (%) (Auto) 42.9 Monocytes (%) (Auto) 9.2 Eosinophils (%) (Auto) 4.1 Basophils (%) (Auto) 1.2 H Neutrophils # (Auto) 3.9 Lymphocytes # (Auto) 3.9 Monocytes # (Auto) 0.8 Eosinophils # (Auto) 0.4 Basophils # (Auto) 0.1 CBC Comment Sodium Level 138 Potassium Level 4.0 Chloride Level 102 Carbon Dioxide Level 31.5 Anion Gap 5 L Blood Urea Nitrogen 26 H Creatinine 0.82 Estimated GFR/1.73 m2 > 90 BUN/Creatinine Ratio 31.7 H Glucose Level 80 Calcium Level 8.9 Albumin 3.8 Thyroid Stimulating Hormone (TSH) 1.32 Chemistry Comments Ethyl Alcohol Level < 10 Urine Specimen Description Cln catch midstream Urine Color Yellow Urine Clarity Clear Urine pH 6.0 Urine Specific [place] >=1.030 Urine Protein Negative Urine Glucose (UA) Negative Urine Ketones Negative Urine Occult Blood Negative Urine Nitrite Negative Urine Bilirubin Negative Urine Urobilinogen 0.2 Urine Leukocyte Esterase Negative Volume Urine Centrifuged 10 ml Urine Comment Urine Opiates Screen Negative Urine Methadone Screen Negative Urine Fentanyl Screen Negative Urine Barbiturates Screen Negative Urine Phencyclidine Screen Negative Urine Amphetamines Screen Positive Urine Benzodiazepines Screen Negative Urine Cocaine Screen Negative Urine Cannabinoids Screen Positive Drug Screen Comment Medical Decision Making Findings Patient with known history of schizophrenia suicide ideations with active plan to hang himself with a rope that he states he has access to that is red. Mental health hold placed Assessment The patient is medically cleared for mental health evaluation. No evidence of a dangerous medical or surgical emergency at this time. Departure Time of Disposition: 23:03 Disposition: 02 SHORT TERM HOSPITAL Impression: Primary Impression: Suicidal ideation Additional Impressions: Schizophrenia Gravely disabled Homelessness Condition: Fair Additional Instructions: Transfer orders for [facility]: At this time there is no evidence of an emergent medical condition that would preclude (admission/transfer) to a psychiatric unit via [facility] protocol for further psychiatric, as well as medical evaluation and treatment. At this time I have no reason to believe that transfer via [facility] protocol would have serious medical compromise in the patient's health. Referrals: NO PRIMARY CARE PROVIDER (PCP) Education Educated: Patient Educated regarding: diagnosis, treatment, need for follow up Signature Scribe Signature: No scribe Attestation: The note accurately reflects work and decisions made by me.Cathi Duvall - LATEX CASTER 01/09/25 23:04 CATHI DUVALL NP Jan 09, 2025 23:04 LIS SALGADO MD Jan 10, 2025 04:31 NEAL CAMPBELL NP Jan 10, 2025 17:30
[2025-01-09 23:23] LABS: MEAN PLATELET VOLUME 8.0 FL (7.4-10.4); RED CELL DISTRIBUTION WIDTH 15.6 % (11.5-14.5)
[2025-01-09 23:41] LABS: CREATININE 0.82 MG/DL (0.60-1.10); TOTAL CARBON DIOXIDE 31.5 MMOL/L (24-32); eGFR > 90 ML/MIN
[2025-01-09 23:44] LABS: ETHANOL < 10 MG/DL (<10)
[2025-01-10 02:28] LABS: URINE AMPHETAMINE SCREEN POSITIVE (Neg); URINE BARBITUATE SCREEN NEGATIVE (Neg); URINE BENZODIAZEPINES SCREEN NEGATIVE (Neg); URINE CANNABINOID SCREEN POSITIVE (Neg); URINE COCAINE SCREEN NEGATIVE (Neg); URINE METHADONE SCREEN NEGATIVE (Neg); URINE OPIATE SCREEN NEGATIVE (Neg); URINE PHENCYCLIDINE SCREEN NEGATIVE (Neg)
[2025-01-10 02:29] LABS: LEUKOCYTE ESTERASE ,URINE NEGATIVE (Neg); NITRITES, URINE NEGATIVE (Neg); OCCULT BLOOD,URINE NEGATIVE (Neg)
[2025-01-10 02:37] LABS: UA COLLECTION TYPE CLN CATCH MIDSTREAM
[2025-01-10 18:07] VITALS: BP 106/48; PULSE 94; RESP 14; TEMP 97.9; O2SAT 98
== END 2025-01-10 20:06 | disposition short-term general hospital (02) ==
LOC: ER 22:01
DX: R45.851 Suicidal ideations (principal); F20.9 Schizophrenia, unspecified; F32.A Depression, unspecified; F15.90 Other stimulant use, unspecified, uncomplicated; Z59.00 Homelessness unspecified; Z20.822 Contact with and (suspected) exposure to COVID-19; Z79.899 Other long term (current) drug therapy
CPT/HCPCS: 36415; 80048; 80305; 80320; 81003; 84443; 85025; 87811; 99284; 99285

== ENCOUNTER 2025-03-08 01:22 | Emergency (ER) | payer MEDICAID ==
[~2025-03-08] VITALS: Ht 170.2 cm; Wt 70.5 kg
[2025-03-08 01:29] VITALS: BP 108/78; PULSE 106; RESP 18; TEMP 97.8; O2SAT 99
== END 2025-03-08 02:42 | disposition left against medical advice (07) ==
LOC: ER 01:23
DX: Z00.8 Encounter for other general examination (principal); Z53.21 Procedure and treatment not carried out due to patient leaving prior to being seen by health care provider

== ENCOUNTER 2025-04-02 02:14 | Emergency (ER) | payer MEDICAID ==
[~2025-04-02] VITALS: Ht 170.2 cm; Wt 60.0 kg
[2025-04-02 02:18] VITALS: BP 113/72; PULSE 112; RESP 18; TEMP 98; O2SAT 98
== END 2025-04-02 02:40 | disposition left against medical advice (07) ==
LOC: ER 02:14
DX: Z02.89 Encounter for other administrative examinations (principal); Z53.21 Procedure and treatment not carried out due to patient leaving prior to being seen by health care provider
CPT/HCPCS: 99281

== ENCOUNTER 2025-05-30 21:25 | Inpatient (IN) | payer MEDICAID ==
[~2025-05-30] VITALS: Ht 170.2 cm; Wt 69.7 kg
[2025-05-30 22:46] LABS: LEUKOCYTE ESTERASE ,URINE NEGATIVE (Neg); NITRITES, URINE NEGATIVE (Neg); OCCULT BLOOD,URINE NEGATIVE (Neg)
[2025-05-30 22:54] LABS: URINE AMPHETAMINE SCREEN POSITIVE (Neg); URINE BARBITUATE SCREEN NEGATIVE (Neg); URINE BENZODIAZEPINES SCREEN NEGATIVE (Neg); URINE CANNABINOID SCREEN NEGATIVE (Neg); URINE COCAINE SCREEN NEGATIVE (Neg); URINE METHADONE SCREEN NEGATIVE (Neg); URINE OPIATE SCREEN NEGATIVE (Neg); URINE PHENCYCLIDINE SCREEN NEGATIVE (Neg)
[2025-05-30 23:12] LABS: CREATININE 1.18 MG/DL (0.60-1.10); TOTAL CARBON DIOXIDE 32.3 MMOL/L (24-32); eCRCL 86 ML/MIN; eGFR 73 ML/MIN
[2025-05-30 23:24] LABS: MEAN PLATELET VOLUME 8.0 FL (7.4-10.4); RED CELL DISTRIBUTION WIDTH 13.4 % (11.5-14.5)
[2025-05-30 23:26] LABS: ETHANOL < 10 MG/DL (<10)
[2025-05-30 23:29] LABS: UA COLLECTION TYPE CLN CATCH MIDSTREAM
--- NOTE | 2025-05-30 23:45 | Physician Documentation ---
History of Present Illness ~ Chief Complaint: Mental Health Eval Stated Complaint: SI Time Seen by MD: 23:38 Primary Medical Doctor: None Mode of Arrival: POV [facility] Patient presents to the emergency room with chief complaint of suicidal ideation with a plan. History of previous. Medication Reconciliation Allergies: Coded Allergies: No Known Allergies (Unverified , 03/08/25) Miscellaneous Medications Home Med List (No Home Medications), (Reported) Past Medical History Past Medical History: *PSYCH*, Depression, Schizophrenia Past Surgical History: noncontributory, other Other Past Surgical History: Polysubstance abuse Patient History: Patient reports no known family medical history. Alcohol Use: None Drug Use: methamphetamine, heroin, other Lives with: Alone Lives In: Homeless Occupation: unemployed Review of Systems ROS All review of systems negative except as per HPI Physical Exam Vital Signs: Temperature: 98.9, Source: Oral, Heart Rate: 114, Respiratory Rate: 16, BP: 119/72, Pulse Oximetry: 98, Weight: 67.270 Oxygen Flow Rate: 0 Physical Exam General: Patient is awake, alert, oriented x4 in no acute distress Head: Normocephalic and atraumatic. Eyes: Conjunctival normal. EOMI. PERRL. ENT: Mucous membranes moist. Neck: Supple, trachea is midline. Chest: Clear to auscultation bilaterally without rales, rhonchi, or wheezes. There is no accessory muscle use or retractions. Cardiac: RRR without murmurs, gallops, or rubs. Psych: Cooperative, smiling, good eye contact, fidgety, suicidal Progress Results/Orders Results/Orders Completed Orders - KENRICK QUINN MD Olanzapine Tablet (Zyprexa Tablet) (05/30/25 23:40) Diphenhydramine Capsule (Benadryl Capsul (05/30/25 23:40) Lorazepam Tablet (Ativan Tablet) (05/30/25 23:40) Vital Signs 05/30/25 05/30/25 21:41 21:47 Temp 98.9 Pulse 114 Resp 16 B/P (MAP) 119/72 Pulse Ox 98 O2 Flow Rate 0 Laboratory Tests Test 05/30/25 22:24 05/30/25 22:45 05/30/25 22:48 Urine Specimen Description Cln catch midstream Urine Color Yellow Urine Clarity Clear Urine pH 7.0 Urine Specific [place] 1.020 Urine Protein 30 H Urine Glucose (UA) Negative Urine Ketones Negative Urine Occult Blood Negative Urine Nitrite Negative Urine Bilirubin Negative Urine Urobilinogen 2.0 H Urine Leukocyte Esterase Negative Volume Urine Centrifuged 10 ml Urine Comment Urine Opiates Screen Negative Urine Methadone Screen Negative Urine Fentanyl Screen Positive H Urine Barbiturates Screen Negative Urine Phencyclidine Screen Negative Urine Amphetamines Screen Positive Urine Benzodiazepines Screen Negative Urine Cocaine Screen Negative Urine Cannabinoids Screen Negative Drug Screen Comment White Blood Count 7.8 Red Blood Count 4.50 L Hemoglobin 13.6 L Hematocrit 40.1 L Mean Corpuscular Volume 89.0 Mean Corpuscular Hemoglobin 30.2 Mean Corpuscular Hemoglobin Concent 34.0 Red Cell Distribution Width 13.4 Platelet Count 292 Mean Platelet Volume 8.0 Neutrophils (%) (Auto) 66.4 Lymphocytes (%) (Auto) 23.7 Monocytes (%) (Auto) 7.9 Eosinophils (%) (Auto) 1.3 Basophils (%) (Auto) 0.7 Neutrophils # (Auto) 5.2 Lymphocytes # (Auto) 1.8 Monocytes # (Auto) 0.6 Eosinophils # (Auto) 0.1 Basophils # (Auto) 0.1 CBC Comment Sodium Level 145 Potassium Level 3.7 Chloride Level 106 Carbon Dioxide Level 32.3 H Anion Gap 7 L Blood Urea Nitrogen 15 Creatinine 1.18 H Estimated GFR/1.73 m2 73 BUN/Creatinine Ratio 12.7 Glucose Level 114 H Calcium Level 8.2 L Albumin 3.7 Chemistry Comments Ethyl Alcohol Level < 10 SARS-CoV-2 Antigen (Rapid) Negative Medical Decision Making Additional information obtaine: old records Findings Patient presents to the emergency room with suicidal ideation. Labs reviewed and that has no evidence of major pathologic derangements and patient is medic ally cleared for mental health evaluation Differential Dx:Considerations: Include: Alcohol abuse, Anxiety, Bipolar disorder, Conversion disorder, Depression, Encephaloathy, Homicidal, Panic disorder, Personality disorder, Schizophrenia, Substance abuse, Suicidal, Other Departure Disposition: 30 STILL A PATIENT Impression: Primary Impression: Suicidal ideation Condition: Guarded Discharge Instructions: Suicidal Feelings: How to Help Yourself Referrals: NO PRIMARY CARE PROVIDER (PCP) Signature Scribe Signature: No scribe Attestation: The note accurately reflects work and decisions made by me.Kenrick Quinn MD 05/30/25 23:44 KENRICK QUINN MD May 30, 2025 23:44
[2025-05-30 23:53] LABS: SQUAMOUS EPITHELIAL CELL,UR NONE SEEN /LPF (FEW)
[2025-05-31 14:57] VITALS: BP 111/71; PULSE 95; RESP 15; TEMP 98; O2SAT 98
[2025-05-31 15:30] VITALS: RESP 15; O2SAT 98
--- NOTE | 2025-05-31 17:11 | HISTORY AND PHYSICAL ---
History of Present Illness Primary Medical Doctor: None History of Present Illness Admission date: 05/31/25 HPI: Admitted 05/31/25 on a 5150 for danger to self and gravely disable, unable to make a viable plan to meet his basic needs, poor insight and judgement, made suicidal statements to suffocate self with a pillow. Utox positive for fentanyl and methamphetamine. Has a payee, receiving support from mental health to access food. Unable to report when he last ate, currently homeless. Chronic pattern of meth use in the context schizophrenia leading to decompensation. Review of Psychiatric Symptoms: Mood: depressed Suicide/self-harm: endorses SI, denies plan and intent Sleep: hypersomnia Appetite: increased Energy: fatigue Anxiety: denies Irritability: denies Homicidal/Anger: denies Hallucinations/Paranoia: no overt psychotic symptoms (withdrawn sleeping) Trauma symptoms: denies Symptoms related to substance withdrawal: denies Psychiatric Medications Side Effects: Denies No evidence of TD, EPS AIMs: 0 Psychiatric History Inpatient: per records multiple - has been recommended for [facility] multiple times in the past per records Historical Diagnoses (w/year): MDD, schizophrenia Access to firearms: denies Hx of suicide attempts: endorses wouldn't share details Hx of self-harm: denies Hx of violence: denies Legal hx: denies Historical Psychiatric Medications: risperidone, buspirone, mirtazapine, trazodone, olanzapine, hydroxyzine Substance Use History: Caffeine: endorses Nicotine: endorses Alcohol: endorses Cannabis: endorses Stimulants: endorses, per records meth since age 16 , Opioids: endorses Other (Inhalants, Hypnotics, Hallucinogens, Rx): hx of huffing gas Social history Born and raised by mother, mother in 2018, has been homeless since, graduated high school. No known intellectual disabilities. No contact with siblings or father. Denies hx of childhood abuse. Family History Mental Illness Alcohol/other drug use: Suicide completions: Current Environment Living Situation: Homeless [place] Relationships: Current occupation: on disabilty, has a payee, never worked (onset of schizophrenia age 16) Income/rent/concerns about paying bills or feeding family: Hx: denies Spiritual: Hobbies/ Other interests: Mental Status Evaluation General Appearance: disheveled, malodorous, green hospital scrubs, lying in bed Eye contact: poor Demeanor: pleasant, does not appear fully aware of their surroundings Orientation: to person, place, time, situation Speech: poverty of speech Psychomotor Activity: Lethargy Abnormal Body Movements: none observed Affect: Full range Suicidality: endorses suicidal ideation with plan Homicidally: denies Thought content: consistent with social norms Thought process: goal-directed Thought perceptions: no perceptual disorder noted Memory: impairment notable Attention: poor- due to sedation Insight: fair Judgment: limited Current Medical Problems: none noted Review of symptoms Denies malaise, other flu like symptoms Denies falls, fatigue, weakness, confusion, dizziness, memory loss Denies tingling/numbness, tremor Denies SOB, chest pain, palpitations, fainting Denies nausea, diarrhea, constipation Denies chronic pain All other systems reviewed negative Medical History TBI Hx: denies Seizure Hx: denies TYLER Hx: denies Diagnoses Psychosis NOS r/o Schizophrenia vs. Methamphetamine induced psychotic disorder Methamphetamine use disorder MDD Tobacco use disorder - Assessment Based on initial evaluation, including interview and history obtained today, patient appears to meet criteria for psychosis NOS and methamphetamine use disorder. Initial interview assessment limited due to his hypersomnia, continuously falling asleep, limited capacity to answer questions. Congruent with withdrawing from methamphetamine. Unclear if he meets criteria for a primary psychotic disorder, based of records his symptoms and pattern of methamphetamine use raise suspicion for methamphetamine induced psychotic disorder. Currently suicidal, unable to care for himself, has lost weight due to poor po intake in the context of methamphetamine use. Will start risperidone to address mood and psychotic symptoms. Status: 5150- danger to self, gravely disabled - multiple plans like OD, unable to attain food, clothing, usp. Safety risk: low risk of imminent self-harm, low risk of externalized violent behaviors Plan Start risperidone 2 mg po QHS Maintenance therapy for tobacco use disorder: schedule nicotine patch, prn nicotine lozenges Continue Q15 min checks Continue Groups/Milieu Engagement Discharge Plan: unclear, homeless Spent approximately 45 minutes reviewing records and test results, assessing and treatment planning, completing care coordination and documenting the encounter. Discussed risks, including possible adverse effects, and benefits of treatment recommendations including no treatment. Voice recognition software may have been used to dictate this note. There may be errors due to use of such software. Reporting of serious errors is appreciated. Allergies: Coded Allergies: No Known Allergies (Unverified , 03/08/25) Past Medical History Past Medical History: *PSYCH*, Depression, Schizophrenia Past Surgical History Past Surgical History: noncontributory, other Other Past Surgical History: Polysubstance abuse Past Family History Patient History: Patient reports no known family medical history. Past Social History Alcohol Use: None Drug Use: Methamphetamine, Heroin, Other Lives with: Alone Lives In: Homeless Occupation: unemployed Personal History Conservator Notified of Admiss: No Assessment/Plan Problems/Diagnosis: (1) Methamphetamine use disorder, severe (2) Psychosis (3) Major depressive disorder, recurrent CODING VISIT-PSYCHIATRY Date of Service: May 31, 2025 Billing Provider: KARINA FONSECA DNP Psych Common Visit Codes: [id number] DIAG EVAL W/MED SRVCS KARINA FONSECA DNP May 31, 2025 17:11
[2025-05-31 19:00] VITALS: RESP 18; O2SAT 84
[2025-05-31 20:00] VITALS: BP 129/64; PULSE 84; RESP 18; TEMP 97.3; O2SAT 98
[2025-06-01 07:00] VITALS: RESP 18; O2SAT 98
[2025-06-01 08:00] VITALS: BP 117/71; PULSE 73; RESP 18; TEMP 98.2; O2SAT 98
[2025-06-01 19:29] VITALS: RESP 16; O2SAT 99
[2025-06-01 19:33] VITALS: BP 103/59; PULSE 98; RESP 16; TEMP 97.2; O2SAT 99
--- NOTE | 2025-06-01 20:07 | PROGRESS NOTE ---
Progress Note Dictate Providers to CC ~ Progress Note: Admission date: 05/31/25 Admission Information: Admitted 05/31/25 on a 5150 for danger to self and gravely disable, unable to make a viable plan to meet his basic needs, poor insight and judgement, made suicidal statements to suffocate self with a pillow. Utox positive for fentanyl and methamphetamine. Has a payee, receiving support from mental health to access food. Unable to report when he last ate, currently homeless. Chronic pattern of meth use in the context schizophrenia leading to decompensation. on disabilty, has a payee, never worked. Interval History: Remains significantly sedated, spending the majority of the day in bed, agreeable to nursing care, Minimal verbal engagement Review of Psychiatric Symptoms: Mood: depressed Suicide/self-harm: endorses SI, denies plan and intent Sleep: hypersomnia Appetite: increased Energy: fatigue Anxiety: denies Irritability: denies Homicidal/Anger: denies Hallucinations/Paranoia: no overt psychotic symptoms (withdrawn sleeping) Trauma symptoms: denies Symptoms related to substance withdrawal: denies Psychiatric Medications Side Effects: Denies No evidence of TD, EPS AIMs: 0 Mental Status Evaluation General Appearance: disheveled, malodorous, green hospital scrubs, lying in bed Eye contact: poor Demeanor: pleasant, does not appear fully aware of their surroundings Orientation: to person, place, time, situation Speech: poverty of speech Psychomotor Activity: Lethargy Abnormal Body Movements: none observed Affect: Full range Suicidality: endorses suicidal ideation Homicidally: denies Thought content: consistent with social norms Thought process: goal-directed Thought perceptions: no perceptual disorder noted Memory: impairment notable Attention: poor- due to sedation Insight: fair Judgment: limited Current Medical Problems: none noted Review of symptoms Denies malaise, other flu like symptoms Denies falls, fatigue, weakness, confusion, dizziness, memory loss Denies tingling/numbness, tremor Denies SOB, chest pain, palpitations, fainting Denies nausea, diarrhea, constipation Denies chronic pain All other systems reviewed negative Medical History TBI Hx: denies Seizure Hx: denies TYLER Hx: denies Diagnoses Psychosis NOS r/o Schizophrenia vs. Methamphetamine induced psychotic disorder Methamphetamine use disorder MDD Tobacco use disorder - Assessment Presents for further evaluation and treatment for psychosis NOS and methamphetamine use disorder. Initial interview assessment limited due to his hypersomnia, continuously falling asleep, limited capacity to answer questions. Congruent with withdrawing from methamphetamine. Unclear if he meets criteria for a primary psychotic disorder, based of records his symptoms and pattern of methamphetamine use raise suspicion for methamphetamine induced psychotic disorder. Currently suicidal, unable to care for himself, has lost weight due to poor po intake in the context of methamphetamine use. Continue risperidone to address mood and psychotic symptoms. 06/01: remains depressed endorsing suicidal ideation, accepting of medication, presentation appears to be consistent with withdrawing from methamphetamine Status: 5150- danger to self, gravely disabled - multiple plans like OD, unable to attain food, clothing, half-way. Safety risk: low risk of imminent self-harm, low risk of externalized violent behaviors Plan Continue risperidone 2 mg po QHS Maintenance therapy for tobacco use disorder: schedule nicotine patch, prn nicotine lozenges Continue Q15 min checks Continue Groups/Milieu Engagement Discharge Plan: unclear, homeless Spent approximately 30 minutes reviewing records and test results, assessing and treatment planning, completing care coordination and documenting the encounter. Discussed risks, including possible adverse effects, and benefits of treatment recommendations including no treatment. Voice recognition software may have been used to dictate this note. There may be errors due to use of such software. Reporting of serious errors is appreciated. Antibiotic Ordered?: N/A Objective Vitals Vital Signs Date Time Temp Pulse Resp B/P (MAP) Pulse Ox O2 Delivery O2 Flow Rate FiO2 06/01/25 19:33 97.2 98 16 103/59 (74) 99 Room Air 06/01/25 07:00 0.0 Lab Results: 05/30/25 2245 05/30/252244 Problem\Assessment\Plan Problems/Diagnosis: (1) Methamphetamine use disorder, severe (2) Psychosis (3) Major depressive disorder, recurrent CODING VISIT-PSYCHIATRY Date of Service: Jun 01, 2025 Billing Provider: KARINA FONSECA DNP Psych Common Visit Codes: [id number] INP/OBS CARE (High) KARINA FONSECA DNP Jun 01, 2025 20:07
--- NOTE | 2025-06-01 20:32 | HISTORY AND PHYSICAL-Residence ---
History & Physical Providers to Resident Creating Document: SARIAH LAROSE RES ~ History of Present Illness Primary Medical Doctor: None Reason for Admit\Complaint: Suicidal ideation History of Present Illness This 29-year-old male was admitted to [facility] for danger to self and gravely disabled and suicidal ideation. Patient comfortably resting in the bed and denies any complaints like chest pain, shortness of breath, nausea or vomiting, abdominal pain, constipation or diarrhea, dysuria or any other concerns. He is not willing to provide any information and is not even opening his eyes. Is nodding yes or no to the questions. Stated that he smoked one pack of cigarettes per day and did not answer questions regarding alcohol abuse recreational abuse. Stopped answering further questions and was sleeping. Per the note from [facility], he has a history of drug abuse. Allergies: Coded Allergies: No Known Allergies (Unverified , 03/08/25) Home Medications Home Medications Active Reported No Home Medications (Home Med List) Each Past Medical History Past Medical History Patient not providing any history. Per previous records, MDD and schizophrenia Past Surgical History Surgical History Comment Patient denies any surgical procedures Family History Family History: Patient reports no known family medical history. Past Social History Social History Comment Patient is not providing any history. Stated that he has been smoking one pack of cigarettes per day for years and did not answer the question about alcohol abuse and recreational drug abuse Alcohol Use: None Drug Use: Methamphetamine, Heroin, Other Lives with: Alone Lives In: Homeless Occupation: unemployed ROS ROS Constitutional: No fever, chills, dizziness, weakness, weight gain or loss Eyes: No pain, erythema, discharge, blurring of vision ENT: No sore throat, epistaxis, tinnitus Cardiovascular: No chest pain, chest pressure, chest discomfort, palpitations, syncope, lower extremity edema, paroxysmal nocturnal dyspnea Respiratory: No shortness of breath, cough, hemoptysis Gastrointestinal: Normal appetite. No nausea, vomiting, diarrhea, constipation, hematemesis, abdominal pain, bloating, melena or fresh blood Genitourinary: No frequency, urgency, nocturia, hematuria or dysuria Musculoskeletal: No arthralgias or myalgias Integumentary: No change in skin, hair, nails. No swelling, bruising, abrasions Neurologic: No headache, neck pain, numbness or tingling of the extremities, weakness Psychiatric: No delusions, depression, loss of interest in normal activity or change in sleep pattern, hallucinations, suicidal ideations Endocrine: No fatigue, weakness, polydipsia, polyuria, change in appetite, heat or cold intolerance, sweating, dry skin Hematological: No bleeding, petechiae, bruising Allergies: No asthma or urticaria Exam Vitals: Vital Signs Date Time Temp Pulse Resp B/P (MAP) Pulse Ox O2 Delivery O2 Flow Rate FiO2 06/01/25 19:33 97.2 98 16 103/59 (74) 99 Room Air 06/01/25 07:00 0.0 General: Alert and oriented to place but is not willing to provide any information HEENT: Normocephalic and atraumatic. Pupils equal round reactive to light. Extraocular movements intact. Oral and nasal mucosa moist Neck: Trachea is in midline. No masses or JVD Chest: Bilateral normal breath sounds. No crackles, rhonchi or wheezes Cardiovascular: Regular rate and rhythm. S1-S2 normal. No rubs or murmurs Abdomen: Soft, nontender nondistended. Bowel sounds present Extremities: No cyanosis, clubbing or edema Central Nervous System: Patient denied neurological examination but is able to move all his extremities without any difficulty Skin: Warm and dry Diagnostic Data Last Recorded Lab Results: 05/30/25224405/30/252244 Additional Plan Lab work from 05/30/2025 reviewed Normocytic normochromic anemia HGB 13.6 Continue to monitor Elevated creatinine EGFR 70 creatinine 1.18 Advised good hydration hydration UA positive for protein . Likely has underlying CKD stage II # elevated glucose levels-114. Could be postprandial borderline DM. HbA1c ordered # liver panel ordered Hypocalcemia Albumin within normal limits Ionized calcium and vitamin-D levels ordered Methamphetamine use disorder Psychosis MDD U tox positive for amphetamines and fentanyl Management as per the psychiatric team Sariah Larose MD Internal Medicine Resident, PGY 3 Date of Service: Jun 01, 2025 Billing Provider: FRANKY TAN MD Common Visit Codes: [id number] INP/OBS CARE (MOD) SARIAH LAROSE RES Jun 01, 2025 20:32 FRANKY TAN MD Jun 02, 2025 19:20
[2025-06-01] MEDS ORDERED: magnesium hydroxide 30ml (MOM) UD suspension PO PRN (20:45)
[2025-06-01] MEDS ORDERED: mag hydrox/Alum hydrox/simeth 30ml oral suspension PO PRN (20:45)
[2025-06-02 07:00] VITALS: RESP 18; O2SAT 99
[2025-06-02 08:00] VITALS: BP 111/69; PULSE 79; RESP 18; TEMP 97.2; O2SAT 99
--- NOTE | 2025-06-02 16:15 | PROGRESS NOTE ---
Progress Note Dictate Providers to CC ~ Progress Note: Admission date: 05/31/25 Admission Information: Admitted 05/31/25 on a 5150 for danger to self and gravely disable, unable to make a viable plan to meet his basic needs, poor insight and judgement, made suicidal statements to suffocate self with a pillow. Utox positive for fentanyl and methamphetamine. Has a payee, receiving support from mental health to access food. Unable to report when he last ate, currently homeless. Chronic pattern of meth use in the context schizophrenia leading to decompensation. on disability, has a payee, never worked. Interval History: Remains significantly sedated, spending the majority of the day in bed, Minimal verbal engagement, when asked reasons to live he stated, "I don't know" States he still has suicidal thoughts but would like to discharge Review of Psychiatric Symptoms: Mood: depressed Suicide/self-harm: endorses SI- smother himself with a bag Sleep: 9 hours Appetite: very hungry Energy: fatigue Anxiety: denies Irritability: denies Homicidal/Anger: denies Hallucinations/Paranoia: no overt psychotic symptoms, endorses AH Trauma symptoms: denies Symptoms related to substance withdrawal: cravings for meth Psychiatric Medications Side Effects: Denies No evidence of TD, EPS AIMs: 0 Mental Status Evaluation General Appearance: disheveled, malodorous, green hospital scrubs, lying in bed Eye contact: poor Demeanor: pleasant, does not appear fully aware of their surroundings Orientation: to person, place, time, situation Speech: poverty of speech Psychomotor Activity: Lethargy Abnormal Body Movements: none observed Affect: Full range Suicidality: endorses suicidal ideation Homicidally: denies Thought content: consistent with social norms Thought process: goal-directed Thought perceptions: no perceptual disorder noted Memory: impairment notable Attention: poor- due to sedation Insight: fair Judgment: limited Current Medical Problems: none noted Review of symptoms Denies malaise, other flu like symptoms Denies falls, fatigue, weakness, confusion, dizziness, memory loss Denies tingling/numbness, tremor Denies SOB, chest pain, palpitations, fainting Denies nausea, diarrhea, constipation Denies chronic pain All other systems reviewed negative Medical History TBI Hx: denies Seizure Hx: denies TYLER Hx: denies Diagnoses Psychosis NOS r/o Schizophrenia vs. Methamphetamine induced psychotic disorder Methamphetamine use disorder MDD Tobacco use disorder - Assessment Presents for further evaluation and treatment for psychosis NOS and methamphetamine use disorder. Initial interview assessment limited due to his hypersomnia, continuously falling asleep, limited capacity to answer questions. Congruent with withdrawing from methamphetamine. Unclear if he meets criteria for a primary psychotic disorder, based of records his symptoms and pattern of methamphetamine use raise suspicion for methamphetamine induced psychotic disorder. Currently suicidal, unable to care for himself, has lost weight due to poor po intake in the context of methamphetamine use. Continue risperidone to address mood and psychotic symptoms. 06/02: remains depressed endorsing suicidal ideation, guarded when asked about AH, Minimal verbal engagement, when asked reasons to live he stated, "I don't know", States he still has suicidal thoughts but would like to discharge. Lack of insight into mental illness. Status: 5250 hold- danger to self, endorses suicidal ideation with plan, depression remains significant, unable to verbalize reasons to live or engage in treatment planning . Safety risk: low risk of imminent self-harm, low risk of externalized violent behaviors Plan Start risperidone 0.5 mg po prn BID Continue risperidone 2 mg po QHS Maintenance therapy for tobacco use disorder: schedule nicotine patch, prn nicotine lozenges Continue Q15 min checks Continue Groups/Milieu Engagement Discharge Plan: Case management through [facility] Has a room at [facility] [place] Discussed risks, including possible adverse effects, and benefits of treatment recommendations including no treatment. Voice recognition software may have been used to dictate this note. There may be errors due to use of such software. Reporting of serious errors is appreciated. Antibiotic Ordered?: N/A Objective Vitals Vital Signs Date Time Temp Pulse Resp B/P (MAP) Pulse Ox O2 Delivery O2 Flow Rate FiO2 06/02/25 08:00 97.2 79 18 111/69 (83) 99 Room Air 06/01/25 07:00 0.0 Lab Results: 05/30/25224405/30/252244 Problem\\Assessment\\Plan Problems/Diagnosis: (1) Methamphetamine use disorder, severe (2) Psychosis (3) Major depressive disorder, recurrent CODING VISIT-PSYCHIATRY Date of Service: Jun 02, 2025 Billing Provider: KARINA FONSECA DNP Psych Common Visit Codes: [id number] INP/OBS CARE(Mod) KARINA FONSECA DNP Jun 02, 2025 16:15
[2025-06-02 19:00] VITALS: RESP 16; O2SAT 98
[2025-06-02 19:40] VITALS: BP 112/69; PULSE 118; RESP 16; TEMP 98; O2SAT 98
[2025-06-03 07:00] VITALS: RESP 16; O2SAT 97
[2025-06-03 08:00] VITALS: BP 104/63; PULSE 94; RESP 16; TEMP 98; O2SAT 97
--- NOTE | 2025-06-03 17:25 | PROGRESS NOTE ---
Progress Note Dictate Providers to CC ~ Progress Note: Admission date: 05/31/25 Admission Information: Admitted 05/31/25 on a 5150 for danger to self and gravely disable, unable to make a viable plan to meet his basic needs, poor insight and judgement, made suicidal statements to suffocate self with a pillow. Utox positive for fentanyl and methamphetamine. Has a payee, receiving support from mental health to access food. Unable to report when he last ate, currently homeless. Chronic pattern of meth use in the context schizophrenia leading to decompensation. on disability, has a payee, never worked. Interval History: Increased engagement in the [employer], showered Review of Psychiatric Symptoms: Mood: "pretty good" reasons to live: "people who care about me" when asked for who in particular he stated, "I don't know" Suicide/self-harm: suicidal with plan to smother himself with a bag Sleep: 9 hours - trouble falling asleep - prn trazodone effective Appetite: increased appetite Energy: fatigue Anxiety: denies Irritability: denies Homicidal/Anger: denies Hallucinations/Paranoia: no overt psychotic symptoms, denies AVH. Trauma symptoms: denies Symptoms related to substance withdrawal: cravings for meth Psychiatric Medications Side Effects: Denies No evidence of TD, EPS AIMs: 0 Mental Status Evaluation General Appearance: disheveled, malodorous, green hospital scrubs, lying in bed Eye contact: poor Demeanor: pleasant, does not appear fully aware of their surroundings Orientation: to person, place, time, situation Speech: poverty of speech Psychomotor Activity: Lethargy Abnormal Body Movements: none observed Affect: Full range Suicidality: suicidal Homicidally: denies Thought content: consistent with social norms Thought process: goal-directed Thought perceptions: no perceptual disorder noted Memory: impairment notable Attention: poor- due to sedation Insight: fair Judgment: limited Current Medical Problems: none noted Review of symptoms Denies malaise, other flu like symptoms Denies falls, fatigue, weakness, confusion, dizziness, memory loss Denies tingling/numbness, tremor Denies SOB, chest pain, palpitations, fainting Denies nausea, diarrhea, constipation Denies chronic pain All other systems reviewed negative Medical History TBI Hx: denies Seizure Hx: denies TYLER Hx: denies Diagnoses Psychosis NOS r/o Schizophrenia vs. Methamphetamine induced psychotic disorder Methamphetamine use disorder MDD Tobacco use disorder - Assessment Presents for further evaluation and treatment for psychosis NOS and methamphetamine use disorder. Initial interview assessment limited due to his hypersomnia, continuously falling asleep, limited capacity to answer questions. Congruent with withdrawing from methamphetamine. Unclear if he meets criteria for a primary psychotic disorder, based of records his symptoms and pattern of methamphetamine use raise suspicion for methamphetamine induced psychotic disorder. Currently suicidal, unable to care for himself, has lost weight due to poor po intake in the context of methamphetamine use. Continue risperidone to address mood and psychotic symptoms. 06/03: remains depressed guarded when asked about AH and suicidal thoughts, Minimal verbal engagement. Focused on discharge but unwilling to safety plan. Will continue to stabilize and treat depression. Status: 5250 hold- danger to self, endorses suicidal ideation with plan, depression remains significant, unable to verbalize reasons to live or engage in treatment planning . Plan Continue risperidone 0.5 mg po prn BID Continue risperidone 2 mg po QHS Maintenance therapy for tobacco use disorder: schedule nicotine patch, prn nicotine lozenges Continue Q15 min checks Continue Groups/Milieu Engagement Discharge Plan: Case management through [facility] Has a room at [facility] Discussed risks, including possible adverse effects, and benefits of treatment recommendations including no treatment. Voice recognition software may have been used to dictate this note. There may be errors due to use of such software. Reporting of serious errors is appreciated. Antibiotic Ordered?: N/A Objective Vitals Vital Signs Date Time Temp Pulse Resp B/P (MAP) Pulse Ox O2 Delivery O2 Flow Rate FiO2 06/03/25 08:00 98.0 94 16 104/63 (77) 97 Room Air 06/01/25 07:00 0.0 Lab Results: 05/30/255 05/30/252244 Problem\\Assessment\\Plan Problems/Diagnosis: (1) Methamphetamine use disorder, severe (2) Psychosis (3) Major depressive disorder, recurrent CODING VISIT-PSYCHIATRY Date of Service: Jun 03, 2025 Billing Provider: KARINA FONSECA DNP Psych Common Visit Codes: [id number] INP/OBS CARE(Mod) KARINA FONSECA DNP Jun 03, 2025 17:25
--- NOTE | 2025-06-03 18:35 | PROGRESS NOTE- Residence ---
Progress Note - Resident Providers to CC Resident Creating Document: MYRON GOEL, MERCEDES ~ Antibiotic Timeout Antibiotic Ordered?: No Subjective Patient seen and examined at the bedside today. No concerns or complaints reported. No acute overnight events were reported. Objective Vital Signs Date Time Temp Pulse Resp B/P (MAP) Pulse Ox O2 Delivery O2 Flow Rate FiO2 06/03/25 08:00 98.0 94 16 104/63 (77) 97 Room Air 06/01/25 07:00 0.0 Result Diagram: 05/30/25224405/30/252244 General: Awake and Alert, no acute distress. HEENT: Conjunctiva pink, Sclera clear, Mucus Membranes moist. Neck: Supple without masses and tenderness. Resp: Unlabored. Lungs clear to auscultation bilaterally. Heart: Regular Rate and rhythm, normal S1 and S2 without murmur, rub or gallop. Abdomen: Soft and non tender no organomegaly Extremities: No cyanosis,clubbing or edema. Skin: Warm and Dry. Assessment Assessment 79-year-old male with substance use disorder is admitted in the center of Behavioral Health for evaluation and management of acute psychosis, schizophrenia versus methamphetamine induced psychotic disorder and major depressive disorder. Plan Plan Acute psychosis Schizophrenia versus methamphetamine induced psychotic disorder Substance use disorder-methamphetamine and fentanyl Major depressive disorder Tobacco use disorder Continue management as per the Psychiatry team. Normocytic normochromic anemia Most likely nutritional in view of the patient's substance use disorder. Continue to monitor the patient's CBC. Encourage adequate nutrition. Mild hypocalcemia Awaiting ionized calcium. Suspected YURIDIA Can be secondary to severe dehydration versus toxic injury from methamphetamine. Monitor with the CMP in one week. Encourage adequate hydration. Disposition: Continue management as per the psychiatric team. The hospitalist team we will continue to follow the patient during the course of his hospitalization. Myron Goel MD Internal Medicine Resident, PGY-3 Date of Service: Jun 03, 2025 Billing Provider: RYAN WASHINGTON MD, SURYA PRATIK, RES Jun 03, 2025 18:35
[2025-06-03 19:00] VITALS: RESP 16; O2SAT 98
[2025-06-03 20:00] VITALS: BP 112/63; PULSE 75; RESP 16; TEMP 98; O2SAT 98
[2025-06-04 07:00] VITALS: RESP 16; O2SAT 99
[2025-06-04 07:51] LABS: CHOL/HDL RATIO 3.0 (0.00-4.99); LDL CHOLESTEROL 93 MG/DL (50-100)
[2025-06-04 08:00] VITALS: BP 104/73; PULSE 83; RESP 14; TEMP 98.3; O2SAT 99
--- NOTE | 2025-06-04 16:28 | PROGRESS NOTE ---
Progress Note Dictate Providers to CC ~ Progress Note: Admission date: 05/31/25 Admission Information: Admitted 05/31/25 on a 5150 for danger to self and gravely disable, unable to make a viable plan to meet his basic needs, poor insight and judgement, made suicidal statements to suffocate self with a pillow. Utox positive for fentanyl and methamphetamine. Has a payee, receiving support from mental health to access food. Unable to report when he last ate, currently homeless. Chronic pattern of meth use in the context schizophrenia leading to decompensation. on disability, has a payee, never worked. Interval History: States he has a support system Severo who cares about him States his dad lives out there [place] his suicidality was triggered because he has nowhere to live Review of Psychiatric Symptoms: Mood: "pretty good" Suicide/self-harm: suicidal with plan to smother himself with a bag Sleep: 9 hours - trouble falling asleep - prn trazodone effective Appetite: increased appetite Energy: fatigue Anxiety: denies Irritability: denies Homicidal/Anger: denies Hallucinations/Paranoia: no overt psychotic symptoms, denies AVH. Trauma symptoms: denies Symptoms related to substance withdrawal: cravings for meth Psychiatric Medications Side Effects: Denies No evidence of TD, EPS AIMs: 0 Mental Status Evaluation General Appearance: disheveled, green hospital scrubs, Eye contact: poor Demeanor: pleasant, does not appear fully aware of their surroundings Orientation: to person, place, time, situation Speech: poverty of speech Psychomotor Activity: Lethargy Abnormal Body Movements: none observed Affect: Full range Suicidality: suicidal Homicidally: denies Thought content: consistent with social norms Thought process: goal-directed Thought perceptions: no perceptual disorder noted Memory: impairment notable Attention: poor- due to sedation Insight: fair Judgment: limited Current Medical Problems: none noted Review of symptoms Denies malaise, other flu like symptoms Denies falls, fatigue, weakness, confusion, dizziness, memory loss Denies tingling/numbness, tremor Denies SOB, chest pain, palpitations, fainting Denies nausea, diarrhea, constipation Denies chronic pain All other systems reviewed negative Medical History TBI Hx: denies Seizure Hx: denies TYLER Hx: denies Diagnoses Psychosis NOS r/o Schizophrenia vs. Methamphetamine induced psychotic disorder Methamphetamine use disorder MDD Tobacco use disorder Assessment Presents for further evaluation and treatment for psychosis NOS and methamphetamine use disorder. Initial interview assessment limited due to his hypersomnia, continuously falling asleep, limited capacity to answer questions. Congruent with withdrawing from methamphetamine. Unclear if he meets criteria for a primary psychotic disorder, based of records his symptoms and pattern of methamphetamine use raise suspicion for methamphetamine induced psychotic disorder. Currently suicidal, unable to care for himself, has lost weight due to poor po intake in the context of methamphetamine use. Continue risperidone to address mood and psychotic symptoms. 06/04: remains depressed guarded, less vegetive symptoms of depression, spending more time in the milieu, remains anxious to discharge but unwilling to safety plan. Will continue to stabilize and treat depression. Reports remission of psychotic symptoms (approximately 5 days since last meth use). Will continue current treatment plan Status: 5250 hold- danger to self, endorses suicidal ideation with plan, depression remains significant, unable to verbalize reasons to live or engage in treatment planning . Plan Continue risperidone 0.5 mg po prn BID Continue risperidone 2 mg po QHS Maintenance therapy for tobacco use disorder: schedule nicotine patch, prn nicotine lozenges Continue Q15 min checks Continue Groups/Milieu Engagement Discharge Plan: Early next week [facility] at [facility] [place] Discussed risks, including possible adverse effects, and benefits of treatment recommendations including no treatment. Voice recognition software may have been used to dictate this note. There may be errors due to use of such software. Reporting of serious errors is appreciated. Antibiotic Ordered?: N/A Objective Vitals Vital Signs Date Time Temp Pulse Resp B/P (MAP) Pulse Ox O2 Delivery O2 Flow Rate FiO2 06/04/25 08:00 98.3 83 14 104/73 (83) 99 Room Air 06/01/25 07:00 0.0 Problem\\Assessment\\Plan Problems/Diagnosis: (1) Methamphetamine use disorder, severe (2) Psychosis (3) Major depressive disorder, recurrent CODING VISIT-PSYCHIATRY Date of Service: Jun 04, 2025 Billing Provider: KARINA FONSECA DNP Psych Common Visit Codes: [id number] INP/OBS CARE(Mod) KARINA FONSECA DNP Jun 04, 2025 16:28
[2025-06-04 19:00] VITALS: RESP 14; O2SAT 98
[2025-06-04 19:45] VITALS: BP 104/62; PULSE 81; RESP 15; TEMP 98.6; O2SAT 97
[2025-06-05 07:50] VITALS: BP 108/63; PULSE 76; RESP 16; TEMP 97.6; O2SAT 100
--- NOTE | 2025-06-05 12:33 | PROGRESS NOTE- Residence ---
Progress Note - Resident Providers to CC Resident Creating Document: JENNIFER KING CC: RYAN WASHINGTON MD ~ Antibiotic Timeout Antibiotic Ordered?: No Subjective Patient seen and examined at the bedside today in [facility] unit. Patient denies any medical complaints at this time Objective Vital Signs Date Time Temp Pulse Resp B/P (MAP) Pulse Ox O2 Delivery O2 Flow Rate FiO2 06/05/25 07:50 97.6 76 16 108/63 (78) 100 Room Air 06/01/25 07:00 0.0 General: awake, alert oriented to place, time, and person HEENT: No pallor present, no icterus, moist mucous membranes Neck: No masses and tenderness Resp: Unlabored. Lungs clear to auscultation bilaterally. Chest: Normal expansion Cardiovascular: Regular Rate and rhythm, normal S1 and S2 without murmur, rub or gallop Abdomen: Soft and nontender, no organomegaly, no guarding and rigidity, bowel sounds present Neuro: No focal weakness in the upper and lower limb muscles, power of the muscles 5/5 bilateral upper and lower extremities, normal reflexes bilaterally. Cranial nerves intact Extremities: No cyanosis,clubbing or edema Skin: Warm and Dry. No lesions Psych: Falt affect, cooperative with exam Assessment Assessment 79-year-old male with substance use disorder is admitted in the center of Behavioral Health for evaluation and management of acute psychosis, schizophrenia versus methamphetamine induced psychotic disorder and major depressive disorder. Plan Plan Acute psychosis Schizophrenia versus methamphetamine induced psychotic disorder Substance use disorder-methamphetamine and fentanyl Major depressive disorder Tobacco use disorder Continue management as per the Psychiatry team. Normocytic normochromic anemia Most likely nutritional in view of the patient's substance use disorder. Continue to monitor the patient's CBC. Encourage adequate nutrition. Mild hypocalcemia Ionized calcium is normal, will continue monitoring Suspected YURIDIA Can be secondary to severe dehydration versus toxic injury from methamphetamine. Monitor with the CMP in one week. Continue encouraging adequate hydration. Most recent labs reviewed Disposition: Continue management as per the psychiatric team. The hospitalist team we will continue to follow the patient during the course of his hospitalization. Patient has been discussed in detail with senior resident (PGY-3), as well as a ttending physician, Dr Kati Kelley MD Internal Medicine Resident PGY-2 Date of Service: Jun 05, 2025 Billing Provider: KATI,JENNIFER FOSTER MD Jun 05, 2025 12:33
--- NOTE | 2025-06-05 18:10 | PROGRESS NOTE ---
Progress Note Dictate Providers to CC ~ Progress Note: Admission date: 05/31/25 Admission Information: Admitted 05/31/25 on a 5150 for danger to self and gravely disable, unable to make a viable plan to meet his basic needs, poor insight and judgement, made suicidal statements to suffocate self with a pillow. Utox positive for fentanyl and methamphetamine. Has a payee, receiving support from mental health to access food. Unable to report when he last ate, currently homeless. Chronic pattern of meth use in the context schizophrenia leading to decompensation. on disability, has a payee, never worked. Interval History: Poor hygiene, declined shower, remains withdrawn to his room lying in bed more than 50% of the day Review of Psychiatric Symptoms: Mood: "pretty good" , vegetative symptoms of depression present: social withdrawal, poor motivation, interest, Suicide/self-harm: suicidal with plan to smother himself with a bag Sleep: 9 hours - trouble falling asleep - prn trazodone effective Appetite: increased appetite Energy: fatigue Anxiety: endorses- Irritability: denies Homicidal/Anger: denies Hallucinations/Paranoia: no overt psychotic symptoms, denies AVH. Trauma symptoms: denies Symptoms related to substance withdrawal: cravings for meth Psychiatric Medications Side Effects: Denies No evidence of TD, EPS AIMs: 0 Mental Status Evaluation General Appearance: disheveled, green hospital scrubs, Eye contact: fair Demeanor: cooperative Orientation: to person, place, time, situation Speech: wnl Psychomotor Activity: wnl Abnormal Body Movements: none observed Affect: Full range Suicidality: suicidal Homicidally: denies Thought content: consistent with social norms Thought process: goal-directed Thought perceptions: no perceptual disorder noted Memory: impairment notable Attention: appears attentive Insight: fair Judgment: limited Current Medical Problems: Normocytic normochromic anemia- r/t poor nutrition (follow up lab work in one w nome) Mild hypocalcemia Suspected YURIDIA- r/t dehydration (follow up lab work in one week) Review of symptoms Denies malaise, other flu like symptoms Denies falls, fatigue, weakness, confusion, dizziness, memory loss Denies tingling/numbness, tremor Denies SOB, chest pain, palpitations, fainting Denies nausea, diarrhea, constipation Denies chronic pain All other systems reviewed negative Medical History TBI Hx: denies Seizure Hx: denies TYLER Hx: denies Diagnoses Psychosis NOS r/o Schizophrenia vs. Methamphetamine induced psychotic disorder Methamphetamine use disorder MDD Tobacco use disorder Assessment Presents for further evaluation and treatment for psychosis NOS and methamphetamine use disorder. Initial interview assessment limited due to his hypersomnia, continuously falling asleep, limited capacity to answer questions. Congruent with withdrawing from methamphetamine. Unclear if he meets criteria for a primary psychotic disorder, based of records his symptoms and pattern of methamphetamine use raise suspicion for methamphetamine induced psychotic disorder. Reported remission of psychotic symptoms (approximately 5 days since last meth use). Suicidal, unable to care for himself, has lost weight due to poor po intake in the context of methamphetamine use. Continue risperidone to address mood and psychotic symptoms. 06/05: Hyper focused on discharge- guarded on rational for why, still spending more than 50% of the day in bed, Will continue to stabilize and treat depression. Will continue current treatment plan Status: 5250 hold- danger to self, endorses suicidal ideation with plan, depression remains significant, unable to verbalize reasons to live or engage in treatment planning . Plan Continue risperidone 0.5 mg po prn BID Continue risperidone 2 mg po QHS Maintenance therapy for tobacco use disorder: schedule nicotine patch, prn nicotine lozenges Continue Q15 min checks Continue Groups/Milieu Engagement Discharge Plan: next week Case management through [facility] Has a room at [facility] Discussed risks, including possible adverse effects, and benefits of treatment recommendations including no treatment. Voice recognition software may have been used to dictate this note. There may be errors due to use of such software. Reporting of serious errors is appreciated. Antibiotic Ordered?: N/A Objective Vitals Vital Signs Date Time Temp Pulse Resp B/P (MAP) Pulse Ox O2 Delivery O2 Flow Rate FiO2 06/05/25 08:00 Room Air 06/05/25 07:50 97.6 76 16 108/63 (78) 100 06/01/25 07:00 0.0 Problem\\Assessment\\Plan Problems/Diagnosis: (1) Methamphetamine use disorder, severe (2) Psychosis (3) Major depressive disorder, recurrent CODING VISIT-PSYCHIATRY Date of Service: Jun 05, 2025 Billing Provider: KARINA FONSECA DNP Psych Common Visit Codes: [id number] INP/OBS CARE(Mod) KARINA FONSECA DNP Jun 05, 2025 18:10
[2025-06-05 19:00] VITALS: RESP 16; O2SAT 100
[2025-06-05 20:00] VITALS: BP 106/57; PULSE 64; RESP 16; TEMP 97.9; O2SAT 100
[2025-06-06 07:11] VITALS: BP 107/57; PULSE 91; RESP 15; TEMP 98.2; O2SAT 97
[2025-06-06] MEDS ORDERED: RISP-32 PO (13:40)
--- NOTE | 2025-06-06 19:06 | DISCHARGE SUMMARY ---
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 Discharge Diagnosis\\Comment: [facility] hearing today 5250 for danger to self not upheld Operations\\Procedures: none Consultants: hospitalist Complications: none Condition on DC: Stable 2 or more antipsychotic used: No 2/more antipsychotic addressed: No Does Patient smoke: Yes Smoking education given.: Yes Discharge Summary: Admission date: 05/31/25 Admission Information: Admitted 05/31/25 on a 5150 for danger to self and gravely disable, unable to make a viable plan to meet his basic needs, poor insight and judgement, made suicidal statements to suffocate self with a pillow. Utox positive for fentanyl and methamphetamine. Has a payee, receiving support from mental health to access food. Unable to report when he last ate, currently homeless. Chronic pattern of meth use in the context schizophrenia leading to decompensation. on disability, has a payee, never worked. Interval History: Hopeful about his discharge plan, welfare case worker has housing set up for him at [facility] with wrap around services. Review of Psychiatric Symptoms: Mood: "pretty good" poor motivation, interest, Suicide/self-harm: suicidal with plan to smother himself with a bag Sleep: 9 hours - trouble falling asleep - prn trazodone effective Appetite: increased appetite Energy: improved Anxiety: endorses- Irritability: denies Homicidal/Anger: denies Hallucinations/Paranoia: no overt psychotic symptoms, denies AVH. Trauma symptoms: denies Symptoms related to substance withdrawal: cravings for meth Psychiatric Medications Side Effects: Denies No evidence of TD, EPS AIMs: 0 Mental Status Evaluation General Appearance: disheveled, green hospital scrubs, Eye contact: fair Demeanor: cooperative Orientation: to person, place, time, situation Speech: wnl Psychomotor Activity: wnl Abnormal Body Movements: none observed Affect: Full range Suicidality: denies suicidal ideation Homicidally: denies Thought content: consistent with social norms Thought process: goal-directed Thought perceptions: no perceptual disorder noted Memory: impairment notable Attention: appears attentive Insight: fair Judgment: limited Current Medical Problems: Normocytic normochromic anemia- r/t poor nutrition (follow up lab work in one week) Mild hypocalcemia Suspected YURIDIA- r/t dehydration (follow up lab work in one week) Review of symptoms Denies malaise, other flu like symptoms Denies falls, fatigue, weakness, confusion, dizziness, memory loss Denies tingling/numbness, tremor Denies SOB, chest pain, palpitations, fainting Denies nausea, diarrhea, constipation Denies chronic pain All other systems reviewed negative Medical History TBI Hx: denies Seizure Hx: denies TYLER Hx: denies Discharge Diagnoses Methamphetamine induced psychotic disorder Methamphetamine use disorder MDD Tobacco use disorder Discharge Assessment Presents for discharge after being admitted and treated for Methamphetamine induced psychotic disorder with suicidal ideation. He won his 5250 hearing, court has deemed he is no longer a danger to himself. Initial few days of admission presentation was hypersomnia, increased appetite, appeared congruent with withdrawing from methamphetamine. Based of records his symptoms and pattern of methamphetamine use raise suspicion for methamphetamine induced psychotic disorder. He reported remission of psychotic symptoms (approximately 5 days since last meth use) and since starting trial of risperidone. Suicidal thoughts resolved completed safety plan with this provider. He reported that suicidality was primarily triggered by homelessness, reports this has resolved since his welfare case worker has attained [facility] housing. Continue risperidone to address mood and psychotic symptoms. Will discharge to [facility] (stable community housing) with wrap around services. Prognosis fair in consideration of community support services, barrier is methamphetamine use disorder, he was not interested in further resources for substance use treatment programming at this time. Plan Continue risperidone 2 mg po QHS Maintenance therapy for tobacco use disorder: schedule nicotine patch, prn nicotine lozenges Smoking Cessation medication including nicotine patch and lozenges were not prescribed because the patient reported they are not ready to quit tobacco products Attend scheduled follow ups for outpatient therapy and medication management (see SW note for specifics) No Access to firearms. Safety plan established, reviewed, copy sent home (copy in the chart) Discussed risks, including possible adverse effects, and benefits of treatment recommendations including no treatment. Voice recognition software may have been used to dictate this note. There may be errors due to use of such software. Reporting of serious errors is appreciated. *Problems/Diagnosis: (1) Methamphetamine use disorder, severe Status: Chronic (2) Psychosis Status: Chronic (3) Major depressive disorder, recurrent Status: Chronic Total Time Spent on D/C: > 30 Minutes Counseling Services Smoking & Tobacco Cessation: 3-10 Minutes CODING VISIT-PSYCHIATRY Date of Service: Jun 06, 2025 Billing Provider: KARINA FONSECA DNP Psych Common Visit Codes: 83093-WFC/OBS DISCH DAY <30min KARINA FONSECA DNP Jun 06, 2025 19:06
== END 2025-06-06 15:52 | disposition home or self-care (01) | DRG 773 ==
LOC: ER 21:25 → UNDOADMIN 05-31 12:30 → ED HOLD 05-31 12:30 → ADULT MH 05-31 14:53 → ED HOLD 05-31 14:53 → ADULT MH 06-01 01:44
PROVIDERS: ADMIT Psychiatry & Neurology Psychiatry; ATTEND Psychiatry & Neurology Psychiatry
PROC: GZHZZZZ Group Psychotherapy (ICD-10-PCS; principal; 2025-06-02)
DX: F15.959 Other stimulant use, unspecified with stimulant-induced psychotic disorder, unspecified (principal); F11.90 Opioid use, unspecified, uncomplicated; F33.3 Major depressive disorder, recurrent, severe with psychotic symptoms; N17.9 Acute kidney failure, unspecified; D64.9 Anemia, unspecified; F33.9 Major depressive disorder, recurrent, unspecified; E83.51 Hypocalcemia; F15.93 Other stimulant use, unspecified with withdrawal; E86.0 Dehydration; Z20.822 Contact with and (suspected) exposure to COVID-19; Z59.00 Homelessness unspecified; Z91.51 Personal history of suicidal behavior; Z63.4 Disappearance and death of family member
CPT/HCPCS: 36415; 80048; 80061; 80076; 80305; 80320; 81001; 82306; 82330; 83036; 85025; 87081; 87811; 99285; Q0163; Q0177

== ENCOUNTER 2025-06-10 19:39 | Emergency (ER) | payer MEDICAID ==
[~2025-06-10 19:39] MED LIST changes: -NO HOME MEDS; +RISP-32 PO
== END 2025-06-10 20:28 | disposition left against medical advice (07) ==
LOC: ER 19:40
DX: Z00.00 Encounter for general adult medical examination without abnormal findings (principal); Z53.21 Procedure and treatment not carried out due to patient leaving prior to being seen by health care provider
CPT/HCPCS: 99281